=== PATIENT | male | born 1945 | race Hispanic/Latino ===

== ENCOUNTER 2020-09-16 10:05 | Outpatient (CLI) | payer MEDICARE, SELFPAY ==
--- NOTE | ~2020-09-16 | MR_ITS ---
EXAMINATION: MR brain/brain stem wo con DATE: 09/16/2020 11:53 INDICATION: Right-sided numbness. Anesthesia of skin. Left hand numbness and tingling. TECHNIQUE: Magnetic resonance imaging (MRI) of the brain and brainstem was performed without intraven ous contrast. Sequences included sagittal and axial T1-weighted FSE, axial diffusion-weighted FS EPI, axial T2*-weighted GRE, axial T2-weighted FLAIR Propeller, and axial T2-weighted Propeller. Apparent diffusion coefficient (ADC) maps were created. COMPARISON: CT cervical spine 11/14/2015 FINDINGS: There is no intracranial hemorrhage, acute infarction, or abnormal intracranial mass lesion . There is an old lacunar infarct in left lentiform nucleus. There are scattered areas of nonspecific increased T2-weighted signal intensity in the cerebral white matter, which is within normal limits f or the patient's age. The ventricles are normal in size. There is mild mucosal thickening in the para nasal sinuses. There are likely changes of ocular lens replacement surgeries. The mastoid air cells a re normal. IMPRESSION: 1. Old lacunar infarct in left lentiform nucleus. Reviewed, dictated and finalized at location A.
== END 2020-09-16 10:06 | disposition home or self-care (01) ==
PROVIDERS: PCP Family Medicine; Visit Provider Family Medicine
DX: R20.0 Anesthesia of skin (principal); R20.2 Paresthesia of skin
CPT/HCPCS: 70551

== ENCOUNTER 2024-04-27 01:51 | Day surgery (SDC) | payer MEDICARE, SELFPAY ==
[2024-04-26 11:34] VITALS: BMI 22.4
[2024-04-27] VITALS (17 sets, daily range): BP systolic 106–176; BP diastolic 52–98; PULSE 47–60; RESP 12–20; TEMP 36.8; O2SAT 95–100; BMI 21.7
[2024-04-27 08:04] LABS: Basophils Absolute Auto 0.1 K/mm3 (0.0-0.1); Basophils Percent Auto 1.1 % (0.2-1.2); Eosinophils Absolute Auto 0.2 K/mm3 (0-0.3); Eosinophils Percent Auto 3.3 % (0-4.4); Hematocrit 40.3 % (42.0-52.0); Hemoglobin 13.7 g/dL (14.0-18.0); Immature Granulocyte Absolute 0.01 K/mm3 (0.00-0.031); Immature Granulocyte Percent A 0.2 % (0-0.5); Immature Platelet Fraction Pct 3.5 % (0.9-11.2); Lymphocytes Absolute Auto 1.15 K/mm3 (0.9-3.2); Lymphocytes Percent Auto 21.4 % (18.3-44.2); Mean Corpuscular Hemoglobin 32.2 pg (26-34); Mean Corpuscular Volume 94.6 fl (80-100); Mean Platelet Volume 10.2 fl (7.4-10.4); Monocytes Absolute Auto 0.7 K/mm3 (0.1-0.6); Monocytes Percent Auto 12.3 % (2.6-8.5); Neutrophils Absolute Auto 3.3 K/mm3 (1.3-6.7); Neutrophils Percent Auto 61.7 % (45.5-73.1); Platelet Count Result 137 k/mm3 (150-375); Red Blood Count 4.26 M/mm3 (4.6-6.20); Red Cell Distribution Width 12.7 % (11.5-14.5); White Blood Count 5.4 K/mm3 (4.5-10.0)
[2024-04-27 08:14] LABS: Anion Gap 8 mmol/L (4-12); Blood Urea Nitrogen 18 mg/dL (9-20); Calcium 8.9 mg/dL (8.4-10.2); Carbon Dioxide 26 mmol/L (22-30); Chloride 106 mmol/L (98-107); Estimated CRCL calculation 46 ml/min; Estimated Glomerular Filt Rate > 60; Glucose 107 mg/dL (65-110); Sodium 140 mmol/L (137-145)
--- NOTE | 2024-04-27 08:20 | WPDHPUPDATE1 ---
History and Physical Update Update Date/Time: 04/27/24 08:20 History and Physical has been reviewed, including an updated exam of the patient. There are NO changes in the patient's condition. Risks, benefits, and alternatives have been discussed and questions answered. Patient agrees to proceed with procedure.
--- NOTE | 2024-04-27 08:20 | WPDMODSED ---
Moderate Sedation Note-Pt Data Patient Data Diagnosis: Coronary artery disease Present Complaint: Coronary artery disease Procedure to be performed/Plan: Coronary angiography, left heart cath, +/- PCI Allergies Allergy/AdvReac Type Severity Reaction Status Date / Time No Known Allergies Allergy Verified 04/27/24 07:44 Home Medications Medication Instructions Recorded Confirmed Type carvedilol 25 mg tablet 25 mg PO Q12H 05/08/20 04/26/24 History clopidogrel 75 mg tablet (Plavix) 75 mg PO DAILY 05/08/20 04/26/24 History losartan 50 mg tablet 50 mg PO DAILY 05/08/20 04/26/24 History simvastatin 20 mg tablet 20 mg PO DAILY 05/08/20 05/28/21 History zinc sulfate 50 mg zinc (220 mg) 220 mg PO DAILY 05/08/20 05/28/21 History tablet ascorbic acid (vitamin C) 1,000 mg 1 g PO DAILY 07/24/20 04/26/24 History tablet aspirin 81 mg tablet,delayed 81 mg PO DAILY 07/24/20 04/26/24 History release (Adult Aspirin Regimen) cholecalciferol (vitamin D3) 25 25 mcg PO DAILY 07/24/20 04/26/24 History mcg (1,000 unit) capsule potassium gluconate 600 mg (99 mg) 600 mg PO DAILY 07/24/20 05/28/21 History tablet vitamin E 100 unit capsule 100 unit PO DAILY 07/24/20 05/28/21 History sildenafil 100 mg tablet 100 mg PO DAILY PRN sexual 05/28/21 05/28/21 Rx activity #10 tabs Sedation/Anesthesia: No previous sedation/anesthesia problems (including family history). [facility]LY [facility] Past Medical History Medical History Decreased libido Eczema GERD (gastroesophageal reflux disease) History of CVA (cerebrovascular accident) Hyperlipidemia Hypertension Numbness and tingling in left hand Screening for prostate cancer Family History Family History Mother Hypertension Family history of cardiovascular disease Family history of lung cancer Sibling Hypertension Father Family history of cardiovascular disease Social History Social History Smoking status: Never smoker Alcohol intake: never Substance use: never Substance use type: does not use Living arrangements: with family Occupation/Education: retired Gender identity (if verbalized by the patient): Male Sexual Orientation (if Verbalized by the Patient): Straight or Heterosexual Spiritual care concerns: No Agree to blood products: Yes Mod Sed Physical Exam Physical Exam Pre Procedural Exam: Normal: Appearance, Lungs, Heart Rate, Heart Rhythm, Neuro Exam, Extremities and Skin Hours since solid foods: 12 Hours since liquid intake: 8 Mallampati Classification: class II Internal Medicine - PN: Obj Da Vital Signs Vital Signs: Vital Signs - 24 hr 04/27/24 07:46 Temperature 36.8 C Pulse Rate 60 Respiratory Rate 18 Blood Pressure 165/98 H Pulse Oximetry 100 Oxygen Delivery Room Air Labs 04/27/24 07:50 04/27/24 07:50 Labs: Laboratory Results - last 24 hr 04/27/24 07:50 WBC 5.4 RBC 4.26 L Hgb 13.7 L Hct 40.3 L MCV 94.6 MCH 32.2 MCHC 34.0 RDW 12.7 Plt Count 137 L MPV 10.2 Immature Gran % (Auto) 0.2 Neut % (Auto) 61.7 Lymph % (Auto) 21.4 [place] % (Auto) 12.3 H Eos % (Auto) 3.3 Baso % (Auto) 1.1 Lymph # (Auto) 1.15 [place] # (Auto) 0.7 H Eos # (Auto) 0.2 Baso # (Auto) 0.1 Abs Immat Gran (auto) 0.01 Absolute Neuts (auto) 3.3 Absolute Nucleated RBC 0.000 Nucleated RBC % 0.0 % Immature Plt Fraction 3.5 Sodium 140 Potassium 4.0 Chloride 106 Carbon Dioxide 26 Anion Gap 8 BUN 18 Creatinine 1.00 Estim Creat Clear Calc 46 Estimated GFR > 60 Glucose 107 Calcium 8.9 ASA Classification/Sedation ASA Classification/Sedation ASA Class: III Emergent: No Risks: Risks, benefits and alternatives explained and patient/family accepted plan for sedation. Patient re-evaluated immediately prior to sedation.
--- NOTE | 2024-04-27 08:21 | WPDCARDPROC ---
Cardiac Cath Procedure Note Date of procedure:: 04/27/24 Performing physician:: CATHETERIZATION LABORATORY REPORT Procedure Date: 04/27/2024 Regional Environmental Manager: Enmanuel Delgadillo M.D., [facility]? Referring Physician: Zack Coyne M.D. ? Anesthesia: Versed and Fentanyl were ordered and given in my presence at 08:52, procedure ended at 09:13. Supervision of nurse monitored moderate sedation with Versed and Fentanyl was provided for 21 minutes. Total of Versed 1mg and Fentanyl 50mcg were administered by the Site Inspector RN Malia Rabago. Pre-op Diagnosis: Coronary artery disease Post-op Diagnosis: 1. Stent seen in the proximal-mid LAD. There is a moderate 50-60% in-stent restenosis in the mid portion of the stent. 2. Stent seen in the proximal LCX extending to OM branch. There is 80% in-stent restenosis. 3. The distal RCA at the bifurcation of the RPLV and RPDA has a 70% stenosis. The ostial RPDA has an 80% stenosis with a tandem lesion of 70% in the proximal portion. The ostium of the RPLV has angiographically moderate stenosis. Procedure(s): 1. Moderate sedation 2. Ultrasound-guided access of the right radial artery 3. Coronary angiography Access Site: Right radial artery Brief History and Clinical Indications: Patient is a 79 year old male with CAD s/p prior stents who is referred for [facility] for abnormal stress test. All risks, benefits and alternatives to left heart catheterization with or without percutaneous coronary intervention was discussed at length with the patient. Risk of complications including but not limited to bleeding, infection, arrhythmia, stroke, worsening kidney function, blood loss, groin hematoma, limb loss, emergency coronary artery bypass grafting, and even were discussed with the patient and all questions were answered. The patient understood and wished to proceed. Time out called, patient name, date of , medical record number, allergies, procedure performed, identify Regional Environmental Manager, patient and staff member concurred with accurate data, procedure carried on. Findings: LEFT HEART CATHETERIZATION FINDINGS: 1. Left main: The left main coronary artery is widely patent without any significant obstructive disease. 2. Left anterior descending: Stent seen in the proximal-mid LAD. There is a moderate 50-60% in-stent restenosis in the mid portion of the stent. Remainder of LAD has luminal irregularities. 3. Left circumflex: The left circumflex artery has luminal irregularities. Stent seen in the proximal LCX extending to OM branch. There is 80% in-stent restenosis. 4. Right coronary artery: The RCA is the dominant vessel. The RCA is calcified. The RCA has diffuse mild disease with a 40-50% stenosis in the mid portion. The distal RCA at the bifurcation of the RPLV and RPDA has a 70% stenosis. The ostial RPDA has an 80% stenosis with a tandem lesion of 70% in the proximal portion. The ostium of the RPLV has angiographically moderate stenosis. Description of Procedure: Informed consent signed and placed in the chart. Patient transferred to ammunition assembly i laborer room. Prepped and draped in usual sterile fashion. 2% lidocaine injected subcutaneously in right wrist area. 22-gauge venipuncture catheter used to access the right radial artery under ultrasound guidance. 6-FR slender sheath placed in right radial artery. Nitroglycerine and Verapamil were given intraarterial through the sheath. Versacore wire advanced under fluoroscopy 5F Tig 4 diagnostic catheter engaged Left Main Coronary Artery. However, catheter kept disengaging. Repeat angios obtained with 5F FL 5 diagnostic catheter. 5F Tig 4 diagnostic catheter engaged Right Coronary Artery Multiple orthogonal angiogram obtained and reviewed Hemostasis was achieved by application of TR band. Disposition: Home Plan: The patient will be monitored in the recovery area. Discharge home after post-cath bed rest is completed. Will discuss above findings and plan with referring Laundry Bag Punch Operator. Continue aggressive medical therapy and risk factor modification. ? Enmanuel Delgadillo M.D. Interventional Cardiology
== END 2024-04-27 13:31 | disposition home or self-care (01) ==
PROVIDERS: PCP Family Medicine; Visit Provider Internal Medicine
PROC: (CPT 93454; principal; 2024-04-27 09:00)
DX: I25.10 Atherosclerotic heart disease of native coronary artery without angina pectoris (principal); T82.855A Stenosis of coronary artery stent, initial encounter; R94.39 Abnormal result of other cardiovascular function study; Y83.8 Other surgical procedures as the cause of abnormal reaction of the patient, or of later complication, without mention of misadventure at the time of the procedure; Z95.5 Presence of coronary angioplasty implant and graft; I10 Essential (primary) hypertension; E78.5 Hyperlipidemia, unspecified; K21.9 Gastro-esophageal reflux disease without esophagitis; Z86.73 Personal history of transient ischemic attack (TIA), and cerebral infarction without residual deficits; Z79.02 Long term (current) use of antithrombotics/antiplatelets
CPT/HCPCS: 36415; 80048; 85025; 85055; 93454; 93458; A9270; C1769; C1887; C1894; J1644; J2003; J2250; J2305; J3010; J7040

== ENCOUNTER 2024-07-27 07:34 | Emergency (ER) | payer MEDICARE, SELFPAY ==
--- NOTE | ~2024-07-27 | XR_ITS ---
Clinical Indication: Chest pain PA and lateral views of the chest: Comparison: None Findings: The lungs are clear, without evidence of focal consolidation or pleural effusion. Cardiome diastinal silhouette is within normal limits. Bones and soft tissues are unremarkable. Impression: Normal chest. Reviewed, dictated and finalized at location . CAR DRIVER Impression: Normal chest.
--- NOTE | 2024-07-27 07:37 | ECG_ITS ---
Test Date: 2024-07-27 07:42:57 Measurements Intervals Pope Rate: 60 P: 32 MN: 173 QRS: -11 QRSD: 91 T: 45 QT: 406 QTc: 408 Interpretive Statements SINUS RHYTHM POSSIBLE LEFT ATRIAL ENLARGEMENT [-0.1mV P WAVE IN V1/V2] POSSIBLE RIGHT VENTRICULAR CONDUCTION DELAY [RSR (QR) IN V1/V2] No previous ECG available for comparison Electronically Signed On 07-28-2024 09:44:06 DIRECTOR OF NATIONAL SALES by Russell Tee M.D.
--- OUTSIDE RECORDS SUMMARY | 2024-07-27 07:37 | XMS_ITS | Patient Health Summary ---
Author Organization [facility] Address [address] [place] [address] Care Team Providers Care Supervisor Looping Name Role Phone Khris Robertson MD Primary Care Provider Note from [facility],non-owned Affiliates and Associated Physician Practices is amultiple site organization consisting of ambulatory clinics and hospital sitesin [place], [place], [place] and [place]. This disclosure is being madepursuant to the Care Everywhere program and may not contain all information available regarding this patient. Last updated 18.[facility] Social History Tobacco Use Types Packs/Day Years Used Date Smoking Tobacco: Never Assessed Sex and Gender Information Value Date Recorded Sex Assigned at Not on file Gender Identity Not on file Sexual Orientation Not on file Procedures * DERMATOPATHOLOGY(Performed 02/03/2019) Results * DERMATOPATHOLOGY (02/03/2019 12:00 AM CDT) Case Report Dermatopathology Report Case: [id number] Authorizing Provider: Pat Horn DO Collected: 02/03/2019 12:00 AM Ordering Location: [facility] DermPath Lab Received: 02/04/2019 12:02 PM Pathologist: Rafy Jj MD Specimen: Skin, right medial buttock 9 2:34 PM CDT DERMATOPATHOLOGY LABORATORY Final Diagnosis Specimen A. 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 9 2:34 PM CDT DERMATOPATHOLOGY LABORATORY Gross Description Specimen A: Received is one formalin filled container labeled with the patient's name and designated right medial buttock. The specimen consists of a shave measuring [id number]. Jar 0. 2:34 PM CDT DERMATOPATHOLOGY LABORATORY Microscopic Description Specimen A. SKIN, right medial buttock: There is psoriasiform hyperplasia of the epidermis with focal parakeratosis and spongiosis. There is a superficial, mainly lymphohistiocytic inflammatory infiltrate. Grocott's methenamine silver (GMS) stain fails to highlight fungal elements in the available sections. COMMENT: The histological differential diagnosis includes early / partially treated psoriasis and a chronic eczematous dermatitis including contact dermatitis. 2:34 PM CDT DERMATOPATHOLOGY LABORATORY Disclaimer An external and internal positive and negative controls are appropriate for the histochemical, immunohistochemical and immunofluorescence stain(s) in this case (if any), except where stated explicitly. The performance characteristics of the stain(s) cited in this report were developed and its performance characteristic determined by the Dermatopathology Laboratory at [facility], directed by Dr. Susie Jj. These tests need not be, and therefore are not, approved by the [place] Food and Drug Administration. The tests are used for clinical purposes. Billing Codes Specimen Charges Stain Charges 35447 1 13879 1 2:34 PM CDT DERMATOPATHOLOGY LABORATORY Embedded Images 2:34 PM CDT DERMATOPATHOLOGY LABORATORY Pathology/Cytolog y TISSUE SPECIMEN FROM SKIN / Unknown 02/03/2019 02/04/2019 12:02 PM CDT Pat Horn DO LAB - PATHOLOGY/C YTOLOGY ORDERABLES DERMATOPATHOLOGY LABORATORY [facility] - Department of Dermatology [address] [place] [address], 5th Floor Lab [address] [phone] Care Teams Supervisor Looping Relationship Specialty Start Date End Date Khris Robertson MD PCP - General Internal Medicine 08/15/21
--- OUTSIDE RECORDS SUMMARY | 2024-07-27 07:37 | XMS_ITS | Referral Summary ---
Author Organization [facility] Address [address] [place] [address] Care Team Providers Care Corporate Security Manager Name Role Phone Khris Robertson MD Primary Care Provider Source Comments [facility],non-owned Affiliates and Associated Physician Practices is amultiple site organization consisting of ambulatory clinics and hospital sitesin [place], [place], [place] and [place]. This disclosure is being madepursuant to the Care Everywhere program and may not contain all information available regarding this patient. Last updated 18.[facility] Social History Tobacco Use Types Packs/Day Years Used Date Smoking Tobacco: Never Assessed Sex and Gender Information Value Date Recorded Sex Assigned at Not on file Gender Identity Not on file Sexual Orientation Not on file Plan of Treatment Not on file Care Teams Corporate Security Manager Relationship Specialty Start Date End Date Khris Robertson MD PCP - General Internal Medicine 08/15/21
--- OUTSIDE RECORDS SUMMARY | 2024-07-27 07:38 | XMS_ITS | Encounter Summary ---
Author Organization [facility] Address [address] [place] [address] Care Team Providers Care Meat Manager Name Role Phone Shaan Gray MD Primary Care Provider [phone] Ralf Wilson MD Unavailable [phone] Asa Aquino MD Unavailable [phone] Reason for Visit * Reason Onset Date Comments No Contact Made 07/26/2024 Encounter Details Date Type Department Care Team (Late st Contact Info) Description 07/26/2024 Nurse Triage [facility] Primary Care at [address] [phone] Shaan Gray MD [address] [place] [address] [address] [place], [place] [id number] Social History Tobacco Use Types Packs/Day Years Used Date Smoking Tobacco: Never Passive Smoke Exposure: Never Smokeless Tobacco: Never Alcohol Use Standard Drinks/Week Comments No 0 (1 standard drink = 0.6 oz pur e alcohol) AUDIT-C Answer Date Recorded Q1: How often do you have a drink containing alcohol? Never 11/18/2023 Q2: How many drinks containi ng alcohol do you have on a typical day when you are drinking? Patient does not drink Frequency of Binge Drinking Not on file 10/25 PHQ-2 Answer Date Recorded PHQ-2 Total Score (If total score is 3 or more points, staff should administer the PHQ-9) 0 03/25/2024 Sex and Gender Information Value Date Recorded Sex Assigned at Not on file Legal Sex Male 7:27 AM PRINCIPAL TECHNICAL ARCHITECT Gender Identity Male 05/06/2024 8:28 PM PRINCIPAL TECHNICAL ARCHITECT Sexual Orientation Straight 05/06/2024 8: 28 PM PRINCIPAL TECHNICAL ARCHITECT documented as of this encounter Miscellaneous Notes * Telephone Encounter - Adelaide Mosquera MA - 07/26/2024 11:08 AM PRINCIPAL TECHNICAL ARCHITECT Spoke with Garret. He said that he has this for a week and stated that he has been having pressure in his lung on the right side, He has been having burps. He has took Pepto and it is still not helping. Due to patients symptoms he has been advised to go to the ED to be checked out. He stated he was going to [facility] ED. CIPAL TECHNICAL ARCHITECT * Telephone Encounter - Diann Melton RN - 07/26/2024 9:23 AM PRINCIPAL TECHNICAL ARCHITECT Second attempt- [facility] to call back with any further questions or concerns Routing to Shaan Gray MD's office FYI Reason for Disposition Second attempt to contact caller AND no contact made. Phone number verified. Protocols used: No Contact or Duplicate Contact [id number] CIPAL TECHNICAL ARCHITECT * Telephone Encounter - Diann Melton RN - 07/26/2024 9:03 AM PRINCIPAL TECHNICAL ARCHITECT Regarding: Pressure on right side of lungs. Gas more at night when laying down flat feels needles,keeps burping ----- Message from Casi Neville sent at 07/26/2024 8:55 AM PRINCIPAL TECHNICAL ARCHITECT ----- Symptom Based Call Chief Complaint(s): Pressure on right side of lungs. Gas not from food, feels more at night when laying down flat feels like needles and he keeps burping. Duration: For about a week. What type of symptom(s) is the patient experiencing? Red Flag. Is the patient concerned they are experiencing a medical emergency requiring an ambulance? No Additional Comments: Patient stated he has an EKG and Echocardiogram scheduled for 08/09/24 at 9:00 AM at [facility]. Patient stated the pressure is not in his chest but on the right side of his lungs. Does message need to be routed? Yes-Action Needed CIPAL TECHNICAL ARCHITECT documented in this encounter Plan of Treatment Not on file documented as of this encounter Visit Diagnoses Not on filedocumented in this encounter Care Teams Meat Manager Relationship Specialty Start Date End Date Shaan Gray MD [address] [place] [address] PCP - General Family Medicine 02/18/23 Ralf Wilson MD [address] [place] [address] Consulting Physician Cardiology 02/18/23 Asa Aquino MD [address] [place] [address] Consulting Physician Urology 02/18/23 documented as of this encounter
--- OUTSIDE RECORDS SUMMARY | 2024-07-27 07:38 | XMS_ITS | Clinical Summary ---
Author Organization [facility] Address [facility] [place] [address] Care Team Providers Care Special Warfare Combatant Crewman Name Role Phone Shaan Gray MD Primary Care Provider [phone] Ralf Wilson MD Unavailable [phone] Asa Aquino MD Unavailable [phone] Allergies Active Allergy Reactions Criticality Noted Date Comments Atorvastatin Hives Medium 12/02/2022 Medications aspirin 81 mg enteric coated tablet Take 1 tablet (81 mg total) by mouth daily Active zinc sulfate 220 mg tablet Take 1 tablet (220 mg total) by mouth daily Active cholecalciferol (VITAMIN D-3) 25 mcg (1,000 unit) tablet Take 1 tablet (1,000 Units total) by mouth daily Active multivitamin capsule Take 1 capsule by mouth daily Active triamcinolone (KENALOG) 0.05 % ointment Active turmeric root extract 500 mg capsule Take by mouth Active aleisha extract 500 mg capsule Take by mouth Activ e tamsulosin (FLOMAX) 0.4 mg extended release capsuleIndicatio ns:benign prostatic hyperplasia with lower urinary tract sx Take 1 capsule (0.4 mg total) by mouth daily Send to [facility] [employer] 90 capsule 3 09/01/19 24 Active mupirocin (BACTROBAN) 2 % ointment Apply topically 3 (three) times a day For 1 week 22 g 10/27/19 24 Active cyanocobalamin (Vitamin B-12) 1,000 mcg sublingual tablet Take 1 tablet (1,000 mcg total) by mouth daily Active acidophilus-pect in, citrus 100 million cell-10 mg capsule Take by mouth Activ e simvastatin (ZOCOR) 20 mg tabletIndication s:Coronary artery disease involving federated indians of graton coronary artery of federated indians [place] gr[place] heart without angina pectoris Take 1 tablet (20 mg total) by mouth nightly 90 tablet 3 02/24/20 24 025 Active clopidogreL (PLAVIX) 75 mg tabletIndication s: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 DO NOT EXCEED 1 PER 24 HOURS 10 tablet 06/07/19 25 Active saw-vit E-sod nfi-hsw-gppf-pyg 160-100-100 mg-unit-mcg tablet Take by mouth Active biotin 2,500 mcg capsule Take by mouth Active omega-3 fatty acids-fish oil 300-1,000 mg capsule Take 2 capsules (2 g total) by mouth daily Active ASHWAGANDHA EXTRACT ORAL Take by mouth Act maria luz NON FORMULARY, FOR CLINIC ADMINISTERED MEDICATIONS ONLY, (not in database) 1 each once Tribulus 1000mg 025 Discontin ued(Thera py completed ) Active Problems Problem Noted Date Diagnosed Date Platelets decreased 03/25/2024 Nocturnal leg cramps 03/25/2024 Encounter for annual wellnes s visit (AWV) in Medicare patient 03/25/2024 Assessment & Plan (03/25/2024 3:18 PM CDT): A(n) yearly Medicare Annual Wellness Visit has been performed today. Garret Cortes is not up to date on screening tests. He is in need of Hepatitis B. He is not up to date on needed preventative vaccinations; He is in need of Influenza. We discussed healthy lifestyle habits, educational material has been given. Medications reviewed, changes documented as per the medical record and discussed with patient along with risks vs benefits. Specific topics reviewed: drugs, ETOH, and tobacco, importance of regular dental care, importance of regular exercise, importance of varied diet, limit TV, media violence, minimize junk food, and seat belts. Return in 6 months Atypical chest pain 02/24/2024 Laceration of ear canal, initial encounter 10/26 Ectopic atrial rhythm 04/01/2023 Prostatitis 03/05/2023 Assessment & Plan (03/05/2023 10:34 AM CDT): Considering prostatitis of infectious origin on top of BPH Discussed holding herbal that might cause enlargement of prostate Tamsulosin Add saw judah Tubbsrim ds x 2 weeks, considering infectious prostatitis, also with ALYSSA today it may cause some bacteremia Urinalysis today Chronic ischemic heart disease 02/18/2023 Family history of premature CAD 02/18/2023 Establishing care with new doctor, encounter for 02/18/2023 Assessment & Plan (02/21/2023 9:06 PM CDT): A(n) initial visit to establish care has been performed today. Garret Cortes is up to date on screening tests. He is in need of Cholesterol screening. He is not up to date on needed preventative vaccinations; He is in need of Influenza, Zoster, and Covid-19 (booster). We discussed healthy lifestyle habits, educational material has been given. Medications reviewed, changes documented as per the medical record and discussed with patient along with risks vs benefits. Continuing current regimen Labs ordered for next visit Urinalysis is clear for infection, but will send for culture anyway just in case I'll consider if we need empirics to treat prostatitis; culture will take 2 days Holding off on flu shot given recent infection. Switch to coricidin HBP (OTC) for symptoms for now. We can revisit flu shot in 2-3 weeks Return in 4 months Muscle cramps 09/27/2022 Elevated PSA, greater than or equal to 20 ng/ml 06/11/2021 Assessment & Plan (06/04/2022 5:50 PM SECURITY TEST ENGINEER): Monitor, recheck PSA Completed course of antibiotics, no further episodes of painful urination Assessment & Plan (03/22/2022 4:46 PM CDT): Recurrent UTI, with cystitis and proctitis Completed 3 rounds of antibiotics with continued urinary symptoms Recently started on 01/16/2022, continues to have difficulty with urinary symptoms, including increased urinary frequency at night Given likely cystitis or prostatitis, will require long-term antibiotics Start levofloxacin 500 mg daily for 28 days Assessment & Plan (06/11/2021 1:07 PM SECURITY TEST ENGINEER): Patient reports some inconsistent LUTS, reviewed patient provided records demonstrating PSA of 20.4 Patient already has follow-up scheduled with urologist at [facility] Will follow recommendations from Urology 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 Assessment & Plan (09/23/2022 10:55 AM CDT): Stable, generally well controlled; no chest pain, no shortness of breath; no changes to exercise tolerance Continue appropriate management of cholesterol, Continue carvedilol 25 mg b.i.d., Plavix 75 mg daily, losartan 50 mg b.i.d. Assessment & Plan (03/22/2022 4:32 PM CDT): Stable, well controlled; patient reports no chest pain, no dyspnea on exertion or loss of exercise tolerance Continue ASA 81 mg daily, clopidogrel 75 mg daily, carvedilol 25 mg b.i.d., losartan 50 mg b.i.d. Assessment & Plan (09/10/2021 2:07 PM CDT): Stable, well controlled; patient reports no chest pain, no dyspnea or worsening exercise tolerance Continue ASA 81 mg, carvedilol 25 mg, Plavix 75 mg, losartan 50 mg daily Continue simvastatin 20 mg nightly Assessment & Plan (06/11/2021 1:06 PM SECURITY TEST ENGINEER): Stable, well controlled; reports no in good energy levels most recent stress test demonstrated good ejection fraction continue to follow with Cardiology for management continue ASA mg, Coreg 25 mg b.i.d. Plavix 75 mg daily, losartan 50 mg daily, simvastatin 20 mg nightly S/P drug eluting coronary stent placement 2015 Overview (09/05/2016): Status post insertion of drug-eluting stent into left anterior descending artery for coronary artery disease Benign hypertension 03/01/2016 Overview (09/05/2016): HTN (hypertension), benign Assessment & Plan (12/17/2022 5:47 PM CDT): Stable, well controlled; blood pressure at target today Continue medications as listed for coronary artery disease Assessment & Plan (09/23/2022 10:56 AM CDT): Stable, well controlled; blood pressure at target today, for CAD Has some episodes of elevated blood pressure, responds well to medications Blood pressure increases with high salt foods Encourage low-salt diet, less than 2000 g daily Continue carvedilol 25 mg b.i.d., losartan 50 mg b.i.d. Assessment & Plan (06/04/2022 5:50 PM SECURITY TEST ENGINEER): Well controlled, blood pressure at target Continue carvedilol 25 mg b.i.d., losartan 50 mg b.i.d. Assessment & Plan (03/22/2022 4:46 PM CDT): Stable, well controlled; blood pressure at target; patient is working on exercise and weight loss Continue losartan 50 mg b.i.d., carvedilol 25 mg b.i.d. Assessment & Plan (09/10/2021 2:06 PM CDT): Stable, well controlled; patient reports few episodes of elevated blood pressure at home; most root related to eating high sodium foods Encourage patient to avoid high sodium foods Continue carvedilol 25 mg daily If blood pressure remains elevated, may increase losartan 50 mg to b.i.d. dosing Patient to follow-up with cardiology in approximately 3 months Assessment & Plan (06/11/2021 1:06 PM SECURITY TEST ENGINEER): Not well controlled, patient has labile blood pressures with systolics ranging from 110s to 150s Patient follows with Cardiology post making adjustments to blood pressure medications encouraged patient to continue low-salt diet given patient recognizes small to trigger for has high blood pressure Encouraged regular exercise and activity Gastroesophageal reflux disease without esophagi tis 03/01/2016 Overview (09/05/2016): GERD without esophagitis Assessment & Plan (12/17/2022 5:47 PM CDT): Stable, generally well controlled, continue low-fat diet Assessment & Plan (09/23/2022 10:56 AM CDT): Stable, well controlled; continue dietary limitations Mixed hyperlipidemia 10/09/2015 Assessment & Plan (12/17/2022 5:47 PM CDT): Not well controlled, LDL above target for CAD Continue simvastatin 20 mg nightly; encourage low-fat high-fiber diet Assessment & Plan (09/23/2022 10:55 AM CDT): Generally well controlled, last LDL slightly above target for CAD Continue simvastatin 20 mg nightly, encourage low-fat high-fiber diet Assessment & Plan (06/04/2022 5:49 PM SECURITY TEST ENGINEER): Generally well controlled, last lipids at target; no chest pain no headaches Continue carvedilol 25 mg daily, Plavix 75 mg daily, losartan 50 mg b.i.d. , simvastatin 20 mg daily Assessment & Plan (03/22/2022 4:31 PM CDT): Stable, well controlled; LDL is less than 70 Continue simvastatin 20 mg nightly Resolved Problems Problem Noted Date Diagnosed Date Resolved Date Dyslipidemia 03/01/2016 12/18/2021 Overview (09/05/2016): Dyslipidemia Assessment & Plan (09/10/2021 2:08 PM CDT): Well controlled on simvastatin 20 mg daily Patient LDL, HDL and total cholesterol at target for patient with CKD Encounters Date Type Department Care Team Description 07/26/2024 Nurse Triage [facility] Medical [facility] Primary Care at [address] [phone] Shaan Gray MD 07/26/2024 Telephone [facility] Primary Care at [address] [phone] Shaan Gray MD Medical Question/Miscellaneo us 05/12/[address] [facility] Surgery [address] [place] [address] [address] [place] [phone] Dereje Osborn MD Coronary artery disease of federated indians of gr[place] artery of federated indians of gr[place] heart with stable angina pectoris (HCC) (Primary Dx); Shortness of breath 05/11/2024 3:00 PM SECURITY TEST ENGINEER Office Visit [facility] Surgery [address] [place] [address] [address] [place] [phone] Dereje Osborn MD Coronary artery disease involving federated indians of gr[place] coronary artery of federated indians of gr[place] heart without angina pectoris (Primary Dx); Coronary artery disease of federated indians of gr[place] artery of federated indians of gr[place] heart with stable angina pectoris (HCC) 05/05/2024 [facility] Outreach [facility] Accountable Care Organization [address] [place] [id number] Diann Prakash, RN 05/05/2024 Orders Only Cardiothoracic Surgery Sudarshan Coyne MD Coronary artery disease of federated indians of gr[place] artery of federated indians of gr[place] heart with stable angina pectoris (HCC) (Primary Dx) 05/04/2024 [facility] Outreach [facility] Care [address] [address] Diann Prakash, RN 05/03/2024 Telephone [facility] Cardiology at [address] [place] [address] Sudarshan Coyne MD 04/30/2024 3:00 PM SECURITY TEST ENGINEER Office Visit [facility] Medical Group Cardiology at [address] [place] [address] Sudarshan Coyne MD Coronary artery disease of federated indians [place] gr[place] artery of federated indians of gr[place] heart with stable angina pectoris (HCC) (Primary Dx) 04/28/2024 Orders Only [facility] Medical Group Cardiology [address] [place] [address] Enmanuel Delgadillo MD from Last 3 Months Immunizations Immunization Administration Dates Next Due Influenza, Quadrivalent, Hig h Dose, Preservative Free, Intrr 03/06/2023,06/11/2021 Influenza, Trivalent, High D ose, Split, Preservative Free, Intramuscular 03/25/2024,03/20/2018,03/04/2016 Influenza, Trivalent, Preser vative Free, Intramuscular 05/17/2019 Influenza, Unspecified 10/14/2022(Deferr ed: Patient Refused),04/27/2014 Envision Blue Green (J&J) SARS-CoV-2 Vaccination 04/13/2021 Moderna SARS-CoV-2 Monovalen t Vaccination (12+ YRS) 04/13/2021,09/01/2020 Pfizer SARS-CoV-2 Monovalent Vaccination (12+ Yrs) KO-READY TO USE 11/15/2021 Pfizer Sars-Cov-2 Bivalent V accination (12+ YRS) 02/05/2022 Pneumococcal Conjugate PCV 13 03/04/2016 Pneumococcal Conjugate Pcv20 09/04/2023 Pneumococcal Polysaccharide PPV23 05/17/2019 Tdap 09/13/2014,11/16/2012 ZOSTER LIVE 08/31/2013 ZOSTER Recombinant 02/25/2024,09/04/2023 Surgical History Surgery Date Site/Laterality Comments CORONARY ANGIOPLASTY Coronary angioplasty HERNIA REPAIR Hernia repair Medical History Medical History Date Comments Coronary artery disease Hypertension GERD (gastroesophageal reflux disease) 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 (HCC) 08/12/2016 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 Family History Medical History Relation Name Comments Early Brother 1 Anirudh Killingbeck Other Brother 1 Anirudh Killingbeck Unknown; Heart disease Brother 2 Colt Killingbeck Heart disease Father Liana Acostabeck Other Father Liana Acostabeck Heart r elated; Cause of : Heart related Heart disease Father's Brother Rcihie Acostabeck Other Mother Unknown; Heart disease Paternal Grandfather Sajan Acostabeck Relation Name Status Comments Brother 1 Anirudh Killingbeck Brother 2 Colt Killingbeck Alive Father Liana Acostabeck (Age 64) Father's Brother Richie Acostabeck Alive Mother Paternal Grandfather Sajan Acostabeck Alive Social History Tobacco Use Types Packs/Day Years [...] on file Legal Sex Male 7:27 AM SECURITY TEST ENGINEER Gender Identity Male 05/06/2024 8:28 PM SECURITY TEST ENGINEER Sexual Orientation Straight 05/06/2024 8: 28 PM SECURITY TEST ENGINEER Obstetrics History Last Filed Vital Signs Vital Sign Reading Time Taken Comments Blood Pressure 136/74 07/21/2024 3:01 PM SECURITY TEST ENGINEER Pulse 55 07/21/2024 3:01 PM SECURITY TEST ENGINEER Temperature 35.8 C (96.4 F) 03/25/2024 2:56 PM CDT Respiratory Rate 16 05/11/2024 2:52 PM SECURITY TEST ENGINEER Oxygen Saturation 98% 07/21/2024 3:01 PM SECURITY TEST ENGINEER Inhaled Oxygen Concentration - - Weight 64.9 kg (143 lb) 07/21/2024 3:01 PM SECURITY TEST ENGINEER Height 167.6 cm (5' 6 ) 07/21/2024 3:01 PM SECURITY TEST ENGINEER Body Mass Index 23.08 07/21/2024 3:01 PM SECURITY TEST ENGINEER Plan of Treatment Health Maintenance Due Date Last Done Comments Hepatitis B Screening 1963 Covid-19 Vaccine (2023-2 5 season) 2024 02/05/2022, 11/15/2021, 04/13/2021, Additional history exists DTaP/Tdap/Td Vaccine (3 - Td or Tdap) 09/13/2024 09/13/2014, 11/16/2012 Depression Screening 03/25/2025 03/25/2024, 09/01/2023, 04/22/2023, Additional history exists Fall Risk Assessment 03/25/2025 03/25/2024, 04/22/2023, 03/05/2023, Additional history exists Well Visit 65+ 03/25/2025 03/25/2024 Hepatitis C Screening Completed 06/03/2022 Pneumococcal vaccine 65+ Completed 024, 05/17/2019, 03/04/2016 Zoster Vaccine Completed 02/25/2024, 08/24, 08/31/2013 Influenza Vaccine Completed 03/25/2024, , 06/11/2021, Additional history exists Procedures Procedure Name Priority Date/Time Associated Diagnosis Comments HEPATITIS C ANTIBODY Routine 06/03/2022 12:05 PM SECURITY TEST ENGINEER Need for hepatitis C screening test from Last 3 Months or Most Recently Relevant to Health Maintenance Results * Hepatitis C antibody (06/03/2022 12:05 PM SECURITY TEST ENGINEER) Hep C Ab Nonreactive Nonreactive ANAHI ELAM Comment: Interpretive Data Nonreactive: Antibodies to HCV not detected. Does NOT exclude the possibility of recent exposure to HCV. Equivocal: Equivocal for HCV antibodies. Supplemental molecular testing will be automatically performed to determine infection status in accordance with current CDC screening recommendations. Reactive: Positive for HCV antibodies. This may represent current or past HCV infection. Supplemental molecular testing will be automatically performed to determine current infection status in accordance with current CDC screening recommendations. Interpretive data was last revised on 2019. Blood 06/03/2022 12:0 5 PM SECURITY TEST ENGINEER 06/03/2022 8:34 PM SECURITY TEST ENGINEER us Khris Robertson MD LAB MICROBIOLOGY - GENERA L ORDERABLES Final Result [facility] [id number] [facility] [place] [address] from Last 3 Months or Most Recently Relevant to Health Maintenance Insurance [facility] [employer] [facility] [employer] [facility] [employer] Care Teams Special Warfare Combatant Crewman Relationship Specialty Start Date End Date Shaan Gray MD [address] [facility] [address] [place] [address] PCP - General Family Medicine 02/18/23 Ralf Wilson MD [address] [facility] [address] [place], [place] [phone] Consulting Physician Cardiology 02/18/23 Asa Aquino MD [address] [place], [place] [id number] Consulting Physician Urology 02/18/23
--- OUTSIDE RECORDS SUMMARY | 2024-07-27 07:38 | XMS_ITS | Continuity of Care Document ---
Author Name [facility] Organization [facility] Care Team Providers Care Trimming Department Blocker Name Role Phone [facility] Unavailable Unavailable Problems Combined list of problems [facility] [place] and [facility] facilities. It does not include entries that were removed or entered in error. Problem Status Onset Date Problem Type Date of Resolution Comments Source Chronic ischemic heart disease Active Condition [facility] History of male erectile disorder Active Condition [facility] Hyperlipidemia Active Condition [facility] Hypertension Active Condition [facility] Eruption Inactive Condition 09/05/2014 [facility] Medications Combined list of outpatient medications from [facility] [place] and [facility] facilities.Medications provided include 1) outpatient medications from the last 15 months, and 2) patient-reported medications. Medication Details Route Status Patient Instructions Prescription Expires Prescription Number Last Dispense Date Ordering Provider Order Date Order Qty Source AMLODIPINE BESYLATE 10MG TAB TAKE ONE-HALF TABLET BY MOUTH EVERY DAY ORAL ACTIVE BEBA MONTES 2014 [facility] ASPIRIN 81MG TAB,CHEWABL E CHEW ONE TABLET BY MOUTH EVERY DAY ORAL ACTIVE PASQUALE WYNNE 2013 [facility] CARVEDILOL 25MG TAB TAKE ONE-HALF TABLET BY MOUTH TWICE A DAY ORAL ACTIVE PASQUALE WYNNE 2013 [facility] SIMVASTATIN 80MG TAB TAKE ONE-HALF TABLET BY MOUTH AT BEDTIME ORAL ACTIVE PASQUALE WYNNE 2013 [facility] Immunizations Combined list of available immunizations from the [facility] [place] and [facility] facilities. Immunization Series Date Given Administered By Site Reaction Lot Number CVX Code Drug Resident Services Director Status Comments Source TDAP 2014 115 complet ed Left Deltoid 0.5ml IM [facility] INFLUENZA, UNSPECIFIED FORMULATION 2013 88 complet ed [facility] Social History Combined list of available smoking, tobacco, and other social history from Department of Defense and Veterans Affairs facilities. Social History Type Response Date Comment Sourc e Tobacco smoking status NHIS LIFETIME NON-USER OF TOBACCO 08/31/2013 [facility]
--- OUTSIDE RECORDS SUMMARY | 2024-07-27 07:38 | XMS_ITS | Clinical Summary ---
Author Organization [facility] Address [address] [place] [address] Care Team Providers Care House Mover Helper Name Role Phone None, Provider MD Primary Care Provider Unavaila ble Allergies Active Allergy Reactions Criticality Noted Date Comments Aspirin Other (see comment) Medium Reaction: bleeding, Grass Unknown 11/03/2015 Losartan Unknown 11/30/2015 Pt states he is not allergic to this. Medications nitroglycerin 0.4 MG SL tablet nitroglycerin Tablet, Sublingual 0.4 mg; take 1 tablet under tongue every 5 minutes for chest pain.; 25; ; -Mar-2015; Active 04/19/20 15 Active aspirin 81 MG chewable tablet Chew 81 mg by mouth daily. Active Multiple Vitamin (MULTIVITAMIN) capsule Take 1 capsule by mouth. Active ketoconazole 2 % creamIndications :Dermatitis Apply topically 2 (two) times daily. 60 g 01/09/20 19 Active Potassium 99 MG tablet Take 1 tablet by mouth daily. Active Magnesium 200 MG Tab Take 1 tablet by mouth daily. Active amLODIPine 5 MG tabletIndication s:Benign hypertension TAKE 1 TABLET DAILY DIRECTED 90 tablet 09/06/19 20 Active OMEPRAZOLE 40 MG capsuleIndicatio ns:Gastroesophag eal reflux disease without esophagitis TAKE 1 CAPSULE DAILY 90 capsule 09/06/19 20 Active simvastatin 20 MG tabletIndication s:Hyperlipidemia Take 1 tablet (20 mg total) by mouth nightly at bedtime. 90 tablet 02/04/20 20 Active carvedilol 25 MG tabletIndication s:Coronary artery disease involving [place] coronary artery of [place] heart without angina pectoris,Benign hypertension Take 1 tablet (25 mg total) by mouth 2 (two) times daily. 180 tablet 02/04/20 20 Active clopidogrel 75 MG tabletIndication s:Coronary artery disease of [place] artery of [place] heart with stable angina pectoris (CMS/HCC) Take 1 tablet (75 mg total) by mouth daily. 90 tablet 02/04/20 20 Active losartan 50 MG tabletIndication s:Benign hypertension Take 1 tablet (50 mg total) by mouth daily. 90 tablet 02/04/20 20 Active Turmeric (QC TUMERIC COMPLEX OR) Take 1 tablet by mouth daily. Active sildenafil 100 MG tabletIndication s:Erectile disorder due to medical condition in male Take 1 tablet (100 mg total) by mouth daily as needed for Erectile Dysfunction. 10 tablet 3 02/08/20 20 Active Active Problems Problem Noted Date Diagnosed Date Epigastric pain 02/08/2020 Erectile disorder due to medical condition in ma le 02/08/2020 Red eye 06/11/2019 BMI 22.0-22.9, adult 12/09/2018 Gastroesophageal reflux disease without esophagi tis 03/01/2016 Overview (07/14/2018): Overview: GERD without esophagitis S/P drug eluting coronary stent placement 2015 Overview (07/14/2018): Overview: Status post insertion of drug-eluting stent into left anterior descending artery for coronary artery disease Coronary artery disease invo lving [place] coronary artery of [place] heart without angina pectoris 10/09/2015 Overview (10/15/2018): Overview: Coronary artery disease of [place] artery of [place] heart with stable angina pectoris Overview: Coronary artery disease of [place] artery of [place] heart with stable angina pectoris Hyperlipidemia 10/09/2015 Benign hypertension 10/09/2015 Overview (07/14/2018): Overview: HTN (hypertension), benign Resolved Problems Problem Noted Date Diagnosed Date Resolved Date Viral syndrome 07/14/2019 02/08/2020 Acute upper respiratory infection 08/10/2018 12/09/2018 Atypical chest pain 07/14/2018 12/10/19 19 Precordial pain 07/14/2018 12/09/2018 Dermatitis 07/14/2018 05/21/2019 Male erectile disorder of organic origin 11/20/2016 07/14/2019 Dyslipidemia 03/01/2016 12/09/2018 Overview (07/14/2018): Overview: Dyslipidemia Odynophagia 10/11/2015 12/09/2018 Edema 01/06/2013 12/09/2018 Immunizations Name Administration Dates Next Due Fluzone Adult - >Age 3 (Prefilled Syringe) 05/17 Fluzone High Dose - >Age 65 (Prefilled Syringe) 03/20/2018,03/04/2016 Influenza Adult (Generic) 03/20/2018,03/04/2016 Pneumococcal (Pneumovax 23) 05/17/2019 Pneumococcal (Prevnar 13) 03/04/2016 Tdap (Generic) 11/16/2012 Family History Medical History Relation Comments Heart Brother Heart Father Relation Status Comments Brother Father Mother Social History Tobacco Use Types Packs/Day Years Used Date Smoking Tobacco: Never Smokeless Tobacco: Never Tobacco Cessation:Counseling Given: No Alcohol Use Standard Drinks/Week Comments No 0 (1 standard drink = 0.6 oz pur e alcohol) AUDIT-C Answer Date Recorded Frequency of Alcohol Consumption Never 07/14/2018 Average Number of Drinks Not on file 019 Frequency of Binge Drinking Not on file 06/26 PHQ-2 Answer Date Recorded PHQ-2 Score - If the patient scores above 3, please move on to questions 3-9 0 02/08/2020 Education Answer Date Recorded What is the highest level of school you have completed or the highest degree you have received? Master's degree (e.g., MA, MS, Vanessa, MEd, SEO INTERN, STEPHANIE) 07/14/2018 Sex and Gender Information Value Date Recorded Sex Assigned at Not on file Legal Sex Male 8:21 PM CDT Gender Identity Not on file Sexual Orientation Not on file Last Filed Vital Signs Vital Sign Reading Time Taken Comments Blood Pressure 120/80 02/08/2020 11:18 AM CDT Pulse 54 02/08/2020 11:18 AM CDT Temperature 36.3 C (97.3 F) 02/08/2020 11:18 AM CDT Respiratory Rate 16 02/08/2020 11:18 AM CDT Oxygen Saturation 97% 02/08/2020 11:18 AM CDT Inhaled Oxygen Concentration - - Weight 62.8 kg (138 lb 6.4 oz) 02/08/2020 11:18 AM CDT Height 165.1 cm (5' 5 ) 02/08/2020 11:18 AM CDT Body Mass Index 23.03 02/08/2020 11:18 AM CDT Plan of Treatment Health Maintenance Due Date Last Done Comments ASCVD Statin 1945 Hepatitis C 1963 Colorectal Cancer Screening FIT/FOBT (1 Year) 1990 Zoster Vaccines (1 of 2) 1995 Annual Medicare Wellness Visit 2010 RSV Immunization or 60+ Years (1 - 1-dose 75+ series) 2020 ASCVD LDL 05/28/2020 05/28/2019, 07/25, 02/12/2010 DTaP, Tdap and Td Vaccines (2 - Td or Tdap) 11/16/2022 11/16/2012 COVID-19 Vaccine (3 - season) 2024 04/13/2021, 09/01/2020 Influenza Adult (#1) 2024 05/17/2019, 03/20/2018, 03/20/2018, Additional history exists Pneumococcal Vaccine: 65+ Years Completed 05/17/2019, 03/04/2016 Meningococcal B Vaccine Aged Out No l onger eligible based on patient's age to complete this topic Meningococcal Vaccine Aged Out No jed pacheco eligible based on patient's age to complete this topic RSV Immunizations Under 20 Months Aged Out No longer eligible based on patient's age to complete this topic Procedures Procedure Name Priority Date/Time Associated Diagnosis Comments LIPID PANEL Routine 05/28/2019 9:28 AM TELETYPEWRITER OPERATOR Mixed hyperlipidemia Benign hypertension from Last 3 Months or Most Recently Relevant to Health Maintenance Results * LIPID PANEL (05/28/2019 9:28 AM TELETYPEWRITER OPERATOR) CHOLESTEROL 137 <200.0 MG/DL 05/28/2019 10:[address] [facility] TRIGLYCERIDES 41 <150 MG/DL 05/28/2019 10:57 [address] [facility] HDL 66 >40.0 MG/DL 05/28/2019 10:57 AM [facility] LDL (CALCULATED) 63 <100 MG/DL 05/28/19 20 10:57 AM [facility] NON HDL CHOLESTEROL 71 <130 MG/DL 05/28 10:57 AM [facility] CHOL/HDL RATIO 2.1 0.0 - 4.5 05/28/2019 10:57 AM [facility] VLDL CALCULATION 8 5 - 55 MG/DL 05/28/2019 10:57 AM [facility] LIPID INTERPRETATION 05/28/2019 10:57 AM [facility] Comment: NIH CONCENSUS REPORT RECOMMENDATIONS: ADULT CHILD LOW RISK: CHOLESTEROL <200 <170 TRIGLYCERIDE <150 --- HDL >=60 --- LDL <100 <110 BORDERLINE: CHOLESTEROL 200-239 170-199 TRIGLYCERIDE 150-199 --- HDL 40-59 --- LDL 100-159 110-129 HIGH RISK: CHOLESTEROL >=240 >=200 TRIGLYCERIDE >=200 --- HDL <40 --- LDL >=160 >=130 05/28/2019 9:28 AM TELETYPEWRITER OPERATOR Eric Dubois MD LABORATORY Final Re sult [facility] [address] [place] [address], from Last 3 Months or Most Recently Relevant to Health Maintenance Insurance [employer] [facility] Care Teams House Mover Helper Relationship Specialty Start Date End Date None, Provider, PCP - General UNKNOWN PHYSICIAN SPECIALTY 07/17/23
--- OUTSIDE RECORDS SUMMARY | 2024-07-27 07:38 | XMS_ITS | Encounter Summary ---
Author Organization [facility] Address [address] [facility] [place] [address] Care Team Providers Care Head Of Measurement & Insights Name Role Phone Khris Robertson MD Primary Care Provider Encounter Details Date Type Department Care Team (Late st Contact Info) Description 02/04/2019 Lab Requisition [facility] D[facility] [address] [facility] [place] [address] Pat Horn DO [address] [facility] [address] [place] [address] Social History Tobacco Use Types Packs/Day Years Used Date Smoking Tobacco: Never Assessed Sex and Gender Information Value Date Recorded Sex Assigned at Not on file Gender Identity Not on file Sexual Orientation Not on file documented as of this encounter Plan of Treatment Not on file documented as of this encounter Procedures Procedure Name Priority Date/Time Associated Diagnosis Comments DERMATOPATHOLOGY Routine 02/03/2019 12:0 0 AM CDT documented in this encounter Results * DERMATOPATHOLOGY (02/03/2019 12:00 AM CDT) Case Report Dermatopathology Report Case: [id number] Authorizing Provider: Pat Horn DO Collected: 02/03/2019 12:00 AM Ordering Location: [facility] Received: 02/04/2019 12:02 PM Pathologist: Rafy Jj MD Specimen: Skin, right medial buttock 9 2:34 PM CDT DERMATOPATHOLOGY LABORATORY Final Diagnosis Specimen A. 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 2:34 PM CDT DERMATOPATHOLOGY LABORATORY Gross Description Specimen A: Received is one formalin filled container labeled with the patient's name and designated right medial buttock. The specimen consists of a shave measuring [id number]. Jar 0. 2:34 PM CDT DERMATOPATHOLOGY LABORATORY [...] characteristic determined by the Dermatopathology Laboratory at [facility], directed by Dr. Susie Jj. These tests need not be, and therefore are not, approved by the [place] Food and Drug Administration. The tests are used for clinical purposes. Billing Codes Specimen Charges Stain Charges 44695 1 [id number] 1 2:34 PM CDT DERMATOPATHOLOGY LABORATORY Embedded Images 2:34 PM CDT DERMATOPATHOLOGY LABORATORY Pathology/Cytolog y TISSUE SPECIMEN FROM SKIN / Unknown 02/03/2019 02/04/2019 12:02 PM CDT Pat Horn DO LAB - PATHOLOGY/C YTOLOGY ORDERABLES DERMATOPATHOLOGY LABORATORY [facility] - Department of Dermatology [address] [place] [address], 5th Floor Lab [address] [phone] documented in this encounter Visit Diagnoses Not on filedocumented in this encounter Care Teams Head Of Measurement & Insights Relationship Specialty Start Date End Date Khris Robertson MD PCP - General Internal Medicine 08/15/21 documented as of this encounter
--- OUTSIDE RECORDS SUMMARY | 2024-07-27 07:38 | XMS_ITS | Encounter Summary ---
Author Organization [facility] Address [address] [place] [address] Care Team Providers Care Print Line Operator Name Role Phone Shaan Gray MD Primary Care Provider [phone] Ralf Wilson MD Unavailable [phone] Asa Aquino MD Unavailable [phone] Reason for Visit * Reason Onset Date Comments Medical Question/Miscellaneous 07/26/2024 Encounter Details Date Type Department Care Team (Late st Contact Info) Description 07/26/2024 Telephone [facility] Medical Group Primary Care at [place] [address] [place] [address] Shaan Gray MD [address] [place] [address] [address] [place] [address] Medical Question/Miscellaneous Social History Tobacco Use Types Packs/Day Years [...] on file Legal Sex Male 7:27 AM PLANT TECH Gender Identity Male 05/06/2024 8:28 PM PLANT TECH Sexual Orientation Straight 05/06/2024 8: 28 PM PLANT TECH documented as of this encounter Miscellaneous Notes * Telephone Encounter - Lucinda Aguilar - 07/26/2024 8:39 AM CST Medical Question/Miscellaneous Caller???s Concern: I was scheduling patient for appt, scheduled with GUY Chavis for 07/30/2023,, they stated they wanted to change to Dr Gray, but still have right away, explained that Dr Gray's next appt was 08/24/2024. The call was disconnected, I think it was a phone issue. I called patient back, went to voice mail, left message for them to call back if they still wanted to change appointment. Does message need to be routed? No T TECH documented in this encounter Plan of Treatment Not on file documented as of this encounter Visit Diagnoses Not on filedocumented in this encounter Care Teams Print Line Operator Relationship Specialty Start Date End Date Shaan Gray MD [address] [facility] [place] [address] [place] [address] PCP - General Family Medicine 02/18/23 Ralf Wilson MD [address] [facility] [place] [address] [place] [address] Consulting Physician Cardiology 02/18/23 Asa Aquino MD [address] [place] [address] Consulting Physician Urology 02/18/23 documented as of this encounter
--- OUTSIDE RECORDS SUMMARY | 2024-07-27 07:38 | XMS_ITS | Referral Summary ---
Author Organization [facility] Address [address] [place] [address] Care Team Providers Care Warehouse Loader Name Role Phone Shaan Gray MD Primary Care Provider [phone] Ralf Wilson MD Unavailable [phone] Asa Aquino MD Unavailable [phone] Encounters Date Type Department Care Team Description 07/26/2024 Nurse Triage [facility] Medical Group Primary Care at [address] [address] Shaan Gray MD 07/26/2024 Telephone [facility] Medical [facility] Primary Care at [address] [address] Shaan Gray MD Medical Question/Miscellaneo us 05/12/2024 Orders Only [facility] Surgery [address] [place] [phone] Dereje Osborn MD Coronary artery disease of [place] artery of [place] heart with stable angina pectoris (HCC) (Primary Dx); Shortness of breath 05/11/2024 3:00 PM ENDOCRINOLOGY PHYSICIAN Office Visit [facility] Surgery [address] [place] [phone] Dereje Osborn MD Coronary artery disease involving [place] coronary artery of [place] heart without angina pectoris (Primary Dx); Coronary artery disease of [place] artery of [place] heart with stable angina pectoris (HCC) 05/05/2024 [facility] Out[facility] Accountable Care Organization [address] [place] [address] Diann Prakash RN 05/05/2024 Orders Only Cardiothoracic Surgery Sudarshan Coyne MD Coronary artery disease of [place] artery of [place] heart with stable angina pectoris (HCC) (Primary Dx) 05/04/2024 [facility] Outreach [address] [address] Diann Prakash RN 05/03/2024 Telephone [facility] Medical Group Cardiology at [address] [place] [phone] Sudarshan Coyne MD 04/30/2024 3:00 PM ENDOCRINOLOGY PHYSICIAN Office Visit [facility] Cardiology at [address] [place] [phone] Sudarshan Coyne MD Coronary artery disease of [place] artery of [place] heart with stable angina pectoris (HCC) (Primary Dx) 04/28/2024 Orders Only [facility] Medical [facility] Cardiology [address] [place] [address] Enmanuel Delgadillo MD from Last 3 Months Allergies Active Allergy Reactions Criticality Noted Date [...] mg total) by mouth daily Send to [facility] 90 capsule 3 09/01/19 24 Active mupirocin [...] 20 mg tabletIndication s:Coronary artery disease involving [place] coronary artery of [place] heart without angina pectoris Take 1 tablet (20 mg total) by mouth nightly 90 tablet 3 02/24/20 24 025 Active clopidogreL (PLAVIX) 75 mg tabletIndication s:Coronary artery disease of [place] artery of [place] heart with stable angina pectoris (HCC) TAKE [...] 10 tablet 06/07/19 25 Active saw-vit E-sod [id number] 160-100-100 mg-unit-mcg tablet Take by mouth Active [...] 06/11/2021 Assessment & Plan (06/04/2022 5:50 PM ENDOCRINOLOGY PHYSICIAN): Monitor, recheck PSA Completed course of antibiotics, [...] days Assessment & Plan (06/11/2021 1:07 PM ENDOCRINOLOGY PHYSICIAN): Patient reports some inconsistent LUTS, reviewed patient provided records demonstrating PSA of 20.4 Patient already has follow-up scheduled with urologist at [facility] Will follow recommendations from Urology Coronary artery disease of n ative artery of [place] heart with stable angina pectoris 08/12/2016 Overview (10/18/2016): Coronary artery disease of [place] artery of [place] heart with stable angina pectoris Assessment & [...] nightly Assessment & Plan (06/11/2021 1:06 PM ENDOCRINOLOGY PHYSICIAN): Stable, well controlled; reports no in good [...] b.i.d. Assessment & Plan (06/04/2022 5:50 PM ENDOCRINOLOGY PHYSICIAN): Well controlled, blood pressure at target Continue [...] months Assessment & Plan (06/11/2021 1:06 PM ENDOCRINOLOGY PHYSICIAN): Not well controlled, patient has labile blood [...] diet Assessment & Plan (06/04/2022 5:49 PM ENDOCRINOLOGY PHYSICIAN): Generally well controlled, last lipids at target; [...] cholesterol at target for patient with CKD Immunizations Immunization Administration Dates Next Due Influenza, Quadrivalent, Hig h Dose, Preservative Free, Intrr 03/06/2023,06/11/2021 Influenza, Trivalent, High D ose, Split, Preservative Free, Intramuscular 03/25/2024,03/20/2018,03/04/2016 Influenza, Trivalent, Preser vative Free, Intramuscular 05/17/2019 Influenza, Unspecified 10/14/2022(Deferr ed: Patient Refused),04/27/2014 MusicIP (J&J) SARS-CoV-2 Vaccination 04/13/2021 Moderna SARS-CoV-2 Monovalen t Vaccination (12+ YRS) 04/13/2021,09/01/2020 Pfizer SARS-CoV-2 Monovalent Vaccination (12+ Yrs) KO-READY TO USE 11/15/2021 Pfizer Sars-Cov-2 Bivalent V accination (12+ YRS) 02/05/2022 Pneumococcal Conjugate PCV 13 03/04/2016 Pneumococcal Conjugate Pcv20 09/04/2023 Pneumococcal Polysaccharide PPV23 05/17/2019 Tdap 09/13/2014,11/16/2012 ZOSTER LIVE 08/31/2013 ZOSTER Recombinant 02/25/2024,09/04/2023 Social History Tobacco Use Types Packs/Day Years [...] on file Legal Sex Male 7:27 AM ENDOCRINOLOGY PHYSICIAN Gender Identity Male 05/06/2024 8:28 PM ENDOCRINOLOGY PHYSICIAN Sexual Orientation Straight 05/06/2024 8: 28 PM ENDOCRINOLOGY PHYSICIAN Last Filed Vital Signs Vital Sign Reading Time Taken Comments Blood Pressure 136/74 07/21/2024 3:01 PM ENDOCRINOLOGY PHYSICIAN Pulse 55 07/21/2024 3:01 PM ENDOCRINOLOGY PHYSICIAN Temperature 35.8 C (96.4 F) 03/25/2024 2:56 PM CDT Respiratory Rate 16 05/11/2024 2:52 PM ENDOCRINOLOGY PHYSICIAN Oxygen Saturation 98% 07/21/2024 3:01 PM ENDOCRINOLOGY PHYSICIAN Inhaled Oxygen Concentration - - Weight 64.9 kg (143 lb) 07/21/2024 3:01 PM ENDOCRINOLOGY PHYSICIAN Height 167.6 cm (5' 6 ) 07/21/2024 3:01 PM ENDOCRINOLOGY PHYSICIAN Body Mass Index 23.08 07/21/2024 3:01 PM ENDOCRINOLOGY PHYSICIAN Plan of Treatment Not on file Procedures Procedure Name Priority Date/Time Associated Diagnosis Comments HEPATITIS C ANTIBODY Routine 06/03/2022 12:05 PM ENDOCRINOLOGY PHYSICIAN Need for hepatitis C screening test from Last 3 Months or Most Recently Relevant to Health Maintenance Results * Hepatitis C antibody (06/03/2022 12:05 PM ENDOCRINOLOGY PHYSICIAN) Hep C Ab Nonreactive Nonreactive [facility] ELAM [...] on 2019. Blood 06/03/2022 12:0 5 PM ENDOCRINOLOGY PHYSICIAN 06/03/2022 8:34 PM ENDOCRINOLOGY PHYSICIAN us Khris Robertson MD LAB MICROBIOLOGY - GENERA [place] [id number] [address] Department [place] [address] from Last 3 Months or Most Recently Relevant to Health Maintenance Insurance [facility] [employer] [facility] [employer] [facility] [employer] Care Teams Warehouse Loader Relationship Specialty Start Date End Date Shaan Gray MD [address] [facility] [address] [place] [address] PCP - General Family Medicine 02/18/23 Ralf Wilson MD [address] [facility] [address] [place] [address] Consulting Physician Cardiology 02/18/23 Asa Aquino MD [address] [facility] [address] [place] [address] Consulting Physician Urology 02/18/23
--- OUTSIDE RECORDS SUMMARY | 2024-07-27 07:38 | XMS_ITS | Clinical Summary ---
Author Organization [facility] Address [address] [place] [address] Care Team Providers Care Bottom Filler Name Role Phone Khris Robertson MD Primary Care Provider Source Comments [facility],non-owned Affiliates and Associated Physician Practices is amultiple site organization consisting of ambulatory clinics and hospital sitesin [place], [place], [place] and [place]. This disclosure is being madepursuant to the Care Everywhere program and may not contain all information available regarding this patient. Last updated 18.[facility] [employer] Social History Tobacco Use Types Packs/Day Years Used Date Smoking Tobacco: Never Assessed Sex and Gender Information Value Date Recorded Sex Assigned at Not on file Gender Identity Not on file Sexual Orientation Not on file Plan of Treatment Health Maintenance Due Date Last Done Comments MEDICARE AWV 12 MONTHS 1945 DTAP/TDAP/TD VACCINES (1 - Tdap) 1964 PNEUMOCOCCAL VACCINE 50+ (1 of 1 - PCV) 1995 ZOSTER VACCINE (1 of 2) 1995 Respiratory Syncytial Virus (RSV) Vaccine Pt: or over 60 yrs (1 - 1-dose 75+ series) 2020 COVID-19 VACCINE (3 - 2023- season) 2024 04/13/2021, 09/01/2020 INFLUENZA VACCINE (#1) 2024 9, 03/20/2018, 03/20/2018, Additional history exists DEPRESSION SCREENING 05/26/2024 HEPATITIS B VACCINE Aged Out No longe r eligible based on patient's age to complete this topic HIB VACCINE Aged Out No longer eligi ble based on patient's age to complete this topic HPV VACCINE Aged Out No longer eligi ble based on patient's age to complete this topic MENINGOCOCCAL (Group B) VACCINE Aged Out No longer eligible based on patient's age to complete this topic MENINGOCOCCAL VACCINE Aged Out No jed pacheco eligible based on patient's age to complete this topic Care Teams Bottom Filler Relationship Specialty Start Date End Date Khris Robertson MD PCP - General Internal Medicine 08/15/21
--- OUTSIDE RECORDS SUMMARY | 2024-07-27 07:38 | XMS_ITS | Encounter Summary ---
Author Organization [facility] Address [address] [address] Care Team Providers Care Inspector Fabric Name Role Phone Eric Dubois MD Primary Care Provider Eric Dubois MD Primary Care Provider Godwin Estrada MD Primary Care Provider Eric Dubois MD Primary Care Provider Korey Matthew MD Primary Care Provider [phone] Khris Robertson MD Primary Care Provider Adeline Lowery MD Primary Care Provider Khris Robertson MD Primary Care Provider [phone] Shaan Gray MD Primary Care Provider [phone] Ralf Wilson MD Unavailable [phone] Asa Aquino MD Unavailable [phone] Encounter Details Date Type Department Care Team (Late st Contact Info) Description 08/12/2016 Orders Only [facility] ProviderVince MD [address] [place] [address] Social History Tobacco Use Types Packs/Day Years Used Date Smoking Tobacco: Never Assessed Sex and Gender Information Value Date Recorded Sex Assigned at Not on file Legal Sex Male 7:27 AM STERILE PREPARATION TECHNICIAN Gender Identity Male 05/06/2024 8:28 PM STERILE PREPARATION TECHNICIAN Sexual Orientation Straight 05/06/2024 8: 28 PM STERILE PREPARATION TECHNICIAN documented as of this encounter Plan of Treatment Not on file documented as of this encounter Procedures Procedure Name Priority Date/Time Associated Diagnosis Comments CARDIOLOGY REPORT 08/12/2016 documented in this encounter Results * CARDIOLOGY REPORT (08/12/2016) Anatomical Region Laterality Modality Other Narrative 08/12/2016 Ordered by an unspecified provider. us Historical Provider [facility] KIARRA HARDIN Final Result documented in this encounter Visit Diagnoses Not on filedocumented in this encounter Additional Health Concerns Infection Onset Date Last Indicated Resolved Time COVID: Suspected 11/12/2021 11/12/2021 11/12/2021 3:39 PM CDT COVID19 11/12/2021 11/12/2021 11/22/2021 3:05 AM CDT COVID: Recovered Comment:Added based on recent COVID infection. 11/22/2021 12/18/2021 03/22/2022 3:05 AM C DT COVID: Suspected 02/09/2023 02/09/2023 02/09/2023 2:26 PM CDT COVID: Suspected 02/09/2023 02/09/2023 02/09/2023 2:28 PM CDT documented as of this encounter Care Teams Inspector Fabric Relationship Specialty [place] [address] [place] [address] PCP - General 08/23/16 08/07/17 [place] [address] [place] [address] PCP - General 03/01/16 08/22/16 Godwin Estrada MD [address] [facility] [address] [place] [address] PCP - General Family Medicine 08/08/17 10/09/17 [place] [address] [place] [address] PCP - General Internal Medicine 10/15/17 09/03/20 Korey Matthew MD [address] [place] [address] [place] [address] PCP - General Family Medicine 09/04/20 06/10/21 Khris Robertson MD [address] [place] [address] PCP - General Family Medicine 06/11/21 01/16/22 Adeline Lowery MD [address] [facility] [place] [address] PCP - General Family Practice 01/17/22 01/21/22 Khris Robertson MD [address] [facility] [place] [address] PCP - General Family Medicine 01/22/22 02/17/23 Shaan Gray MD 2 [facility] [address] [place] [address] PCP - General Family Medicine 02/18/23 Ralf Wilson MD 2 [facility] [place] [address] [place] [address] Consulting Physician Cardiology 02/18/23 Asa Aquino MD [address] [place] [address] [place] [address] Consulting Physician Urology 02/18/23 documented as of this encounter
--- OUTSIDE RECORDS SUMMARY | 2024-07-27 07:38 | XMS_ITS | Clinical Summary ---
Author Organization [facility] Address [address] [place] [address] Care Team Providers Care Patent Lawyer Name Role Phone Unavailable Primary Care Provider Unavailabl e Social History Tobacco Use Types Packs/Day Years Used Date Smoking Tobacco: Never Assessed Sex and Gender Information Value Date Recorded Sex Assigned at Not on file Legal Sex Male 12:02 PM BAR USEFUL OR BUSSER Gender Identity Not on file Sexual Orientation Not on file Plan of Treatment Upcoming Encounters Date Type Department Care Team (Late st Contact Info) Description 08/04/2024 1:30 PM CDT Office Visit [facility] Heart and Vascular - [address] [place] [address] Ralf Wilson MD [address] [place] [address] Health Maintenance Due Date Last Done Comments DTAP/TDAP/TD VACCINES (1 - Tdap) 1964 PNEUMOCOCCAL VACCINE 50+ YEARS (1 of 1 - PCV) 04/11/19 95 ZOSTER VACCINE (1 of 2) 1995 RSV VACCINE (60+ or ) (1 - 1-dose 75+ series) 2020 INFLUENZA VACCINE (#1) [address] [place] [address] [place] [address] [employer] PPO [facility]
[2024-07-27 07:50] VITALS: BP 202/94; PULSE 56; RESP 16; TEMP 36.7; O2SAT 100
[2024-07-27 08:05] LABS: Basophils Absolute Auto 0.1 K/mm3 (0.0-0.1); Eosinophils Absolute Auto 0.1 K/mm3 (0-0.3); Eosinophils Percent Auto 2.5 % (0-4.4); Hematocrit 41.4 % (42.0-52.0); Hemoglobin 14.2 g/dL (14.0-18.0); Immature Granulocyte Absolute 0.02 K/mm3 (0.00-0.031); Immature Granulocyte Percent A 0.4 % (0-0.5); Immature Platelet Fraction Pct 3.7 % (0.9-11.2); Lymphocytes Absolute Auto 0.97 K/mm3 (0.9-3.2); Lymphocytes Percent Auto 18.9 % (18.3-44.2); Mean Corpuscular HGB Conc 34.3 g/dl (32-36); Mean Corpuscular Hemoglobin 32.6 pg (26-34); Mean Corpuscular Volume 95.2 fl (80-100); Mean Platelet Volume 10.3 fl (7.4-10.4); Monocytes Absolute Auto 0.6 K/mm3 (0.1-0.6); Monocytes Percent Auto 10.7 % (2.6-8.5); Neutrophils Absolute Auto 3.4 K/mm3 (1.3-6.7); Neutrophils Percent Auto 66.5 % (45.5-73.1); Platelet Count Result 113 k/mm3 (150-375); Red Blood Count 4.35 M/mm3 (4.6-6.20); White Blood Count 5.1 K/mm3 (4.5-10.0)
--- OUTSIDE RECORDS SUMMARY | 2024-07-27 08:06 | XMS_ITS | Referral Summary ---
Author Organization [facility] Address [address] [facility] [place] [address] Care Team Providers Care Industrial Photographer Name Role Phone Khris Robertson MD Primary Care Provider Source Comments [facility],non-owned Affiliates and Associated Physician Practices is amultiple site organization consisting of ambulatory clinics and hospital sitesin [place], [place], [place] and [place]. This disclosure is being madepursuant to the Care Everywhere program and may not contain all information available regarding this patient. Last updated 18.[facility] Social History Tobacco Use Types Packs/Day Years Used Date Smoking Tobacco: Never Assessed Sex and Gender Information Value Date Recorded Sex Assigned at Not on file Gender Identity Not on file Sexual Orientation Not on file Plan of Treatment Not on file Care Teams Industrial Photographer Relationship Specialty Start Date End Date Khris Robertson MD PCP - General Internal Medicine 08/15/21
--- OUTSIDE RECORDS SUMMARY | 2024-07-27 08:07 | XMS_ITS | Referral Summary ---
Author Organization [facility] Address [address] [place] [address] Care Team Providers Care Flash Developer Name Role Phone Shaan Gray MD Primary Care Provider [phone] Ralf Wilson MD Unavailable Asa Aquino MD Unavailable [phone] Encounters Date Type Department Care Team Description 07/26/[address] [facility] Primary Care at [address] [address] Shaan Gray MD 07/26/[address] 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); Shortness of breath 05/11/2024 3:00 PM HAIR DRYER Office Visit [facility] Surgery [address] [place] [address] Dereje Osborn MD Coronary artery disease involving jena coronary artery of jena heart without angina pectoris (Primary Dx); 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) TAKE [...] 10 tablet 06/07/19 25 Active saw-vit E-sod [id number]-pyg 160-100-100 mg-unit-mcg tablet Take by mouth Active [...] 06/11/2021 Assessment & Plan (06/04/2022 5:50 PM HAIR DRYER): Monitor, recheck PSA Completed course of antibiotics, [...] days Assessment & Plan (06/11/2021 1:07 PM HAIR DRYER): Patient reports some inconsistent LUTS, reviewed patient provided records demonstrating PSA of 20.4 Patient already has follow-up scheduled with urologist at [facility] Will follow recommendations from Urology Coronary artery disease of n ative artery of jena heart with stable angina pectoris 08/12/2016 Overview (10/18/2016): 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 Assessment & Plan (06/04/2022 5:50 PM HAIR DRYER): Well controlled, blood pressure at target Continue [...] months Assessment & Plan (06/11/2021 1:06 PM HAIR DRYER): Not well controlled, patient has labile blood [...] diet Assessment & Plan (06/04/2022 5:49 PM HAIR DRYER): Generally well controlled, last lipids at target; [...] 05/17/2019 Influenza, Unspecified 10/14/2022(Deferr ed: Patient Refused),04/27/2014 Pearlfection (J&J) SARS-CoV-2 Vaccination 04/13/2021 Moderna SARS-CoV-2 Monovalen [...] on file Legal Sex Male 7:27 AM HAIR DRYER Gender Identity Male 05/06/2024 8:28 PM HAIR DRYER Sexual Orientation Straight 05/06/2024 8: 28 PM HAIR DRYER Last Filed Vital Signs Vital Sign Reading Time Taken Comments Blood Pressure 136/74 07/21/2024 3:01 PM HAIR DRYER Pulse 55 07/21/2024 3:01 PM HAIR DRYER Temperature 35.8 C (96.4 F) 03/25/2024 2:56 PM CDT Respiratory Rate 16 05/11/2024 2:52 PM HAIR DRYER Oxygen Saturation 98% 07/21/2024 3:01 PM HAIR DRYER Inhaled Oxygen Concentration - - Weight 64.9 kg (143 lb) 07/21/2024 3:01 PM HAIR DRYER Height 167.6 cm (5' 6 ) 07/21/2024 3:01 PM HAIR DRYER Body Mass Index 23.08 07/21/2024 3:01 PM HAIR DRYER Plan of Treatment Not on file Procedures Procedure Name Priority Date/Time Associated Diagnosis Comments HEPATITIS C ANTIBODY Routine 06/03/2022 12:05 PM HAIR DRYER Need for hepatitis C screening test from Last 3 Months or Most Recently Relevant to Health Maintenance Results * Hepatitis C antibody (06/03/2022 12:05 PM HAIR DRYER) Hep C Ab Nonreactive Nonreactive ANA[facility] ELAM [...] on 2019. Blood 06/03/2022 12:0 5 PM HAIR DRYER 06/03/2022 8:34 PM HAIR DRYER us Khris Robertson MD LAB MICROBIOLOGY - [place] [id number] [address] Department [place] [address] from Last 3 Months or Most Recently Relevant to Health Maintenance Insurance [facility] [employer] [facility] [employer] [facility] [employer] Care Teams Flash Developer Relationship Specialty Start Date End Date Shaan Gray MD [address] [facility] [address] [place] [address] PCP - General Family Medicine 02/18/23 Ralf Wilson MD [address] [facility] [address] [place] [address] Consulting Physician Cardiology 02/18/23 Asa Aquino MD [address] [facility] [address] [place] [address] Consulting Physician Urology 02/18/23
--- OUTSIDE RECORDS SUMMARY | 2024-07-27 08:07 | XMS_ITS | Encounter Summary ---
Author Organization [facility] Address [address] [place] [address] Care Team Providers Care Insurance Office Manager Name Role Phone Shaan Gray MD Primary Care Provider [phone] Ralf Wilson MD Unavailable [phone] Asa Aquino MD Unavailable [phone] Reason for Visit * Reason Onset Date Comments Medical Question/Miscellaneous 07/26/2024 Encounter Details Date Type Department Care Team (Late st Contact Info) Description 07/26/2024 Telephone [facility] Primary Care at [place] [address] [place] [address] Shaan Gray MD [address] [place] [address] [address] [place] [address] Medical Question/Miscellaneous Social History Tobacco [...] on file Legal Sex Male 7:27 AM WATER TREATMENT TECHNICIAN Gender Identity Male 05/06/2024 8:28 PM WATER TREATMENT TECHNICIAN Sexual Orientation Straight 05/06/2024 8: 28 PM WATER TREATMENT TECHNICIAN documented as of this encounter Miscellaneous Notes [...] Does message need to be routed? No R TREATMENT TECHNICIAN documented in this encounter Plan of Treatment Not on file documented as of this encounter Visit Diagnoses Not on filedocumented in this encounter Care Teams Insurance Office Manager Relationship Specialty Start Date End Date Shaan Gray MD [address] [facility] [address] [place] [address] PCP - General Family Medicine 02/18/23 Ralf Wilson MD [address] [facility] [address] [place] [address] Consulting Physician Cardiology 02/18/23 Asa Aquino MD [address] [place] [address] [place] [address] Consulting Physician Urology 02/18/23 documented as of this encounter
--- OUTSIDE RECORDS SUMMARY | 2024-07-27 08:07 | XMS_ITS | Clinical Summary ---
Author Organization [facility] Address [address] [facility] [place] [address] Care Team Providers Care Repairer Shoe Sticks Name Role Phone Khris Robertson MD Primary Care Provider Source Comments [facility],non-owned Affiliates and Associated Physician Practices is amultiple site organization consisting of ambulatory clinics and hospital sitesin [place], [place], [place]. This disclosure is being madepursuant to the Care Everywhere program and may not contain all information available regarding this patient. Last updated 18.[facility] [employer] Social History Tobacco Use Types Packs/Day Years [...] age to complete this topic Care Teams Repairer Shoe Sticks Relationship Specialty Start Date End Date Khris Robertson MD PCP - General Internal Medicine 08/15/21
--- OUTSIDE RECORDS SUMMARY | 2024-07-27 08:07 | XMS_ITS | Patient Health Summary ---
Author Organization [facility] Address [address] [place] [address] Care Team Providers Care Centerless Grinder Name Role Phone Khris Robretson MD Primary Care Provider [phone] Note from [facility],non-owned Affiliates and Associated Physician Practices is amultiple site organization consisting of ambulatory clinics and hospital sitesin [place], [place], [place] and [place]. This disclosure is being madepursuant to the Care Everywhere program and may not contain all information available regarding this patient. Last updated 18.[facility] Social History Tobacco Use Types Packs/Day Years Used Date Smoking Tobacco: Never Assessed Sex and Gender Information Value Date Recorded Sex Assigned at Not on file Gender Identity Not on file Sexual Orientation Not on file Procedures * DERMATOPATHOLOGY(Performed 02/03/2019) Results * DERMATOPATHOLOGY (02/03/2019 12:00 AM CDT) Case Report Dermatopathology Report Case: [id number] Authorizing Provider: Pat Horn DO Collected: 02/03/2019 12:00 AM Ordering Location: [facility] DermPath Lab Received: 02/04/2019 12:02 PM Pathologist: [...] The specimen consists of a shave measuring [id number]. Jar 0. 2:34 PM CDT DERMATOPATHOLOGY LABORATORY [...] characteristic determined by the Dermatopathology Laboratory at [facility], directed by Dr. Susie Jj. These tests need not be, and therefore are not, approved by the [place] Food and Drug Administration. The tests are used for clinical purposes. Billing Codes Specimen Charges Stain Charges 20589 1 38113 1 2:34 PM CDT DERMATOPATHOLOGY LABORATORY Embedded Images 2:34 PM CDT DERMATOPATHOLOGY LABORATORY Pathology/Cytolog y TISSUE SPECIMEN FROM SKIN / Unknown 02/03/2019 02/04/2019 12:02 PM CDT Pat Horn DO LAB - PATHOLOGY/C YTOLOGY ORDERABLES DERMATOPATHOLOGY LABORATORY [facility] - Department of Dermatology [address] [place] [address], 5th Floor Lab [address] [phone] Care Teams Centerless Grinder Relationship Specialty Start Date End Date Khris Robertson MD PCP - General Internal Medicine 08/15/21
--- OUTSIDE RECORDS SUMMARY | 2024-07-27 08:07 | XMS_ITS | Encounter Summary ---
Author Organization [facility] Healthcare Address [address] [place] [address] Care Team Providers Care Sand Conditioner Machine Name Role Phone Shaan Gray MD Primary Care Provider [phone] Ralf Wilson MD Unavailable [phone] Asa Aquino MD Unavailable [phone] Reason for Visit * Reason Onset Date Comments No Contact Made 07/26/2024 Encounter Details Date Type Department Care Team (Late st Contact Info) Description 07/26/2024 Nurse Triage [facility] Primary Care at [address] [address] Shaan Gray MD [address] [place] [address] [address] [place], [place] [id number] Social History Tobacco Use Types Packs/Day Years [...] on file Legal Sex Male 7:27 AM TURN DOWN WORKER Gender Identity Male 05/06/2024 8:28 PM TURN DOWN WORKER Sexual Orientation Straight 05/06/2024 8: 28 PM TURN DOWN WORKER documented as of this encounter Miscellaneous Notes * Telephone Encounter - Adelaide Mosquera MA - 07/26/2024 11:08 AM TURN DOWN WORKER Spoke with Garret. He said that he [...] out. He stated he was going to [facility] ED. DOWN WORKER * Telephone Encounter - Diann Melton RN - 07/26/2024 9:23 AM TURN DOWN WORKER Second attempt- [facility] to call back with any further questions or concerns Routing to Shaan Gray MD's office FYI Reason for Disposition Second attempt to contact caller AND no contact made. Phone number verified. Protocols used: No Contact or Duplicate Contact [id number] DOWN WORKER * Telephone Encounter - Diann Melton RN - 07/26/2024 9:03 AM TURN DOWN WORKER Regarding: Pressure on right side of lungs. Gas more at night when laying down flat feels needles,keeps burping ----- Message from Casi Neville sent at 07/26/2024 8:55 AM TURN DOWN WORKER ----- Symptom Based Call Chief Complaint(s): Pressure [...] scheduled for 08/09/24 at 9:00 AM at [facility]. Patient stated the pressure is not in his chest but on the right side of his lungs. Does message need to be routed? Yes-Action Needed DOWN WORKER documented in this encounter Plan of Treatment Not on file documented as of this encounter Visit Diagnoses Not on filedocumented in this encounter Care Teams Sand Conditioner Machine Relationship Specialty Start Date End Date Shaan Gray MD [address] [facility] [address] [place] [address] PCP - General Family Medicine 02/18/23 Ralf Wilson MD [address] [facility] [address] [place] [address] Consulting Physician Cardiology 02/18/23 Asa Aquino MD [address] [place] [address] [place] [address] Consulting Physician Urology 02/18/23 documented as of this encounter
--- OUTSIDE RECORDS SUMMARY | 2024-07-27 08:07 | XMS_ITS | Encounter Summary ---
Author Organization [facility] Address [address] [address] Care Team Providers Care Deliverer Pharmacy Name Role Phone Eric Dubois MD Primary Care Provider Eric Dubois MD Primary Care Provider Godwin Estrada MD Primary Care Provider Eric Dubois MD Primary Care Provider Korey Matthew MD Primary Care Provider [phone] Khris Robertson MD Primary Care Provider Adeline Lowery MD Primary Care Provider Khris Robertson MD Primary Care Provider [phone] Shaan Gray MD Primary Care Provider [phone] Ralf Wilson MD Unavailable [phone] Asa Aquino MD Unavailable [phone] Encounter Details Date Type Department Care Team (Late st Contact Info) Description 08/12/2016 Orders Only [facility] ProviderVince MD [address] [place] [address] Social History Tobacco Use Types Packs/Day Years Used Date Smoking Tobacco: Never Assessed Sex and Gender Information Value Date Recorded Sex Assigned at Not on file Legal Sex Male 7:27 AM FRONT DESK SUPERVISOR Gender Identity Male 05/06/2024 8:28 PM FRONT DESK SUPERVISOR Sexual Orientation Straight 05/06/2024 8: 28 PM FRONT DESK SUPERVISOR documented as of this encounter Plan of [...] documented as of this encounter Care Teams Deliverer Pharmacy Relationship Specialty [place] [address] [place] [address] PCP - General 08/23/16 08/07/17 [place] [address] [place] [address] PCP - General 03/01/16 08/22/16 Godwin Estrada MD [address] [facility] [address] [place] [address] PCP - General Family Medicine 08/08/17 10/09/17 [place] [address] [place] [address] PCP - General Internal Medicine 10/15/17 09/03/20 Korey Matthew MD [address] [place] [address] [place] [address] PCP - General Family Medicine 09/04/20 06/10/21 Khris Robertson MD [address] [place] [address] PCP - General Family Medicine 06/11/21 01/16/22 Adeline Lowery MD [address] [facility] [address] PCP - General Family Practice 01/17/22 01/21/22 Khris Robertson MD [address] [facility] [address] PCP - General Family Medicine 01/22/22 02/17/23 Shaan Gray MD 2 [facility] [address] [place] [address] PCP - General Family Medicine 02/18/23 Ralf Wilson MD [address] [facility] [address] [place] [address] Consulting Physician Cardiology 02/18/23 Asa Aquino MD [address] [place] [address] [place] [address] Consulting Physician Urology 02/18/23 documented as of this encounter
--- OUTSIDE RECORDS SUMMARY | 2024-07-27 08:07 | XMS_ITS | Encounter Summary ---
Author Organization [facility] Address [address] [facility] [address] Care Team Providers Care Bathhouse Keeper Name Role Phone Khris Robertson MD Primary Care Provider Encounter Details Date Type Department Care Team (Late st Contact Info) Description 02/04/2019 Lab Requisition [facility] [address] [facility] [address] [place] [address] Pat Horn DO [address] [facility] [address] [place] [address] Social History Tobacco Use Types Packs/Day Years [...] AM CDT) Case Report Dermatopathology Report Case: [id number] Authorizing Provider: Pat Horn DO Collected: 02/03/2019 12:00 AM Ordering Location: [facility] Received: 02/04/2019 12:02 PM Pathologist: [...] The specimen consists of a shave measuring [id number]. Jar 0. 2:34 PM CDT DERMATOPATHOLOGY LABORATORY [...] characteristic determined by the Dermatopathology Laboratory at [facility], directed by Dr. Susie Jj. These tests need not be, and therefore are not, approved by the [place] Food and Drug Administration. The tests are used for clinical purposes. Billing Codes Specimen Charges Stain Charges 91347 1 98805 1 2:34 PM CDT DERMATOPATHOLOGY LABORATORY Embedded Images 2:34 PM CDT DERMATOPATHOLOGY LABORATORY Pathology/Cytolog y TISSUE SPECIMEN FROM SKIN / Unknown 02/03/2019 02/04/2019 12:02 PM CDT Pat Horn DO LAB - PATHOLOGY/C YTOLOGY ORDERABLES DERMATOPATHOLOGY LABORATORY [facility] - Department of Dermatology [address] [place] [address], 5th Floor Lab [address] [phone] documented in this encounter Visit Diagnoses Not on filedocumented in this encounter Care Teams Bathhouse Keeper Relationship Specialty Start Date End Date Khris Robertson MD PCP - General Internal Medicine 08/15/21 documented as of this encounter
--- OUTSIDE RECORDS SUMMARY | 2024-07-27 08:07 | XMS_ITS | Clinical Summary ---
Author Organization [facility] Address [address] [place] [address] Care Team Providers Care Side Laster Staple Name Role Phone Unavailable Primary Care Provider Unavailabl e Social History Tobacco Use Types Packs/Day Years Used Date Smoking Tobacco: Never Assessed Sex and Gender Information Value Date Recorded Sex Assigned at Not on file Legal Sex Male 12:02 PM FOLDED CLOTH TAPER Gender Identity Not on file Sexual Orientation Not on file Plan of Treatment Upcoming Encounters Date Type Department Care Team (Late st Contact Info) Description 08/04/2024 1:30 PM CDT Office Visit [facility] - [address] [place] [address] Ralf Wilson MD [address] [place] [address] Health Maintenance Due Date Last Done Comments DTAP/TDAP/TD VACCINES (1 - Tdap) 1964 PNEUMOCOCCAL VACCINE 50+ YEARS (1 of 1 - PCV) 04/11/19 95 ZOSTER VACCINE (1 of 2) 1995 RSV VACCINE (60+ or ) (1 - 1-dose 75+ series) 2020 INFLUENZA VACCINE (#1) [address] [place] [address] [place] [address] [employer] PPO [facility]
--- OUTSIDE RECORDS SUMMARY | 2024-07-27 08:07 | XMS_ITS | Clinical Summary ---
Author Organization [facility] Address [facility] [place] [address] Care Team Providers Care Brokerage Office Manager Name Role Phone Shaan Gray MD Primary Care Provider [phone] Ralf Wilson MD Unavailable [phone] Asa qAuino MD Unavailable [phone] Allergies Active Allergy Reactions Criticality Noted Date [...] mg total) by mouth daily Send to 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 Graret Cortes is up to date on screening [...] 06/11/2021 Assessment & Plan (06/04/2022 5:50 PM RECORDS MANAGEMENT ANALYST): Monitor, recheck PSA Completed course of antibiotics, [...] days Assessment & Plan (06/11/2021 1:07 PM RECORDS MANAGEMENT ANALYST): Patient reports some inconsistent LUTS, reviewed patient provided records demonstrating PSA of 20.4 Patient already has follow-up scheduled with urologist at [facility] Will follow recommendations from Urology Coronary artery disease of n 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 08/12/2016 Overview (10/18/2016): 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 Assessment & Plan (06/04/2022 5:50 PM RECORDS MANAGEMENT ANALYST): Well controlled, blood pressure at target Continue [...] months Assessment & Plan (06/11/2021 1:06 PM RECORDS MANAGEMENT ANALYST): Not well controlled, patient has labile blood [...] diet Assessment & Plan (06/04/2022 5:49 PM RECORDS MANAGEMENT ANALYST): Generally well controlled, last lipids at target; [...] Department Care Team Description 07/26/2024 Nurse Triage [facility] Medical [facility] Primary Care at [address] [phone] Shaan Gray MD 07/26/2024 Telephone [facility] Primary Care at [address] [address] Shaan Gray MD Medical Question/Miscellaneo us 05/12/2024 Orders Only [facility] Surgery [address] [place] [address] [address] [place] [phone] Dereje Osborn MD 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 (HCC) (Primary Dx); Shortness of breath 05/11/2024 3:00 PM RECORDS MANAGEMENT ANALYST Office Visit [facility] Surgery [address] [place] [address] [address] [place] [phone] Dereje Osborn MD Coronary artery disease involving sycuan coronary artery of sycuan heart without angina pectoris (Primary Dx); 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 (HCC) 05/05/2024 [facility] Outreach [facility] Accountable Care Organization [address] [place] [address] Diann Prakash, RN 05/05/2024 Orders Only Cardiothoracic Surgery Sudarshan Coyne MD 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 (HCC) (Primary Dx) 05/04/2024 [facility] Outreach [facility] Care [address] [address] Diann Prakash, RN 05/03/2024 Telephone [facility] Cardiology at [address] [place] [address] Sudarshan Coyne MD 04/30/2024 3:00 PM RECORDS MANAGEMENT ANALYST Office Visit [facility] Medical Group Cardiology at [address] [place] [address] Sudarshan Coyne MD 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 (HCC) (Primary Dx) 04/28/2024 Orders Only [facility] Medical Group Cardiology [address] [place] [address] Enmanuel Delgadillo MD from Last 3 Months Immunizations Immunization Administration Dates Next Due Influenza, Quadrivalent, Hig h Dose, Preservative Free, Intrr 03/06/2023,06/11/2021 Influenza, Trivalent, High D ose, Split, Preservative Free, Intramuscular 03/25/2024,03/20/2018,03/04/2016 Influenza, Trivalent, Preser vative Free, Intramuscular 05/17/2019 Influenza, Unspecified 10/14/2022(Deferr ed: Patient Refused),04/27/2014 [employer] ([employer]) SARS-CoV-2 Vaccination 04/13/2021 Moderna SARS-CoV-2 Monovalen [...] artery disease of n 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 (HCC) 08/12/2016 Coronary artery disease of n 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 Family History Medical History Relation Name Comments Early Brother 1 Anirudh Killingbeck Other Brother 1 Anirudh Killingbeck Unknown; Heart disease Brother 2 Colt Killingbeck Heart disease Father Liana Acostabeck Other Father Liana Acostabeck Heart r elated; Cause of : Heart related Heart disease Father's Brother Richie Acostabeck Other Mother Unknown; Heart disease Paternal [...] on file Legal Sex Male 7:27 AM RECORDS MANAGEMENT ANALYST Gender Identity Male 05/06/2024 8:28 PM RECORDS MANAGEMENT ANALYST Sexual Orientation Straight 05/06/2024 8: 28 PM RECORDS MANAGEMENT ANALYST Obstetrics History Last Filed Vital Signs Vital Sign Reading Time Taken Comments Blood Pressure 136/74 07/21/2024 3:01 PM RECORDS MANAGEMENT ANALYST Pulse 55 07/21/2024 3:01 PM RECORDS MANAGEMENT ANALYST Temperature 35.8 C (96.4 F) 03/25/2024 2:56 PM CDT Respiratory Rate 16 05/11/2024 2:52 PM RECORDS MANAGEMENT ANALYST Oxygen Saturation 98% 07/21/2024 3:01 PM RECORDS MANAGEMENT ANALYST Inhaled Oxygen Concentration - - Weight 64.9 kg (143 lb) 07/21/2024 3:01 PM RECORDS MANAGEMENT ANALYST Height 167.6 cm (5' 6 ) 07/21/2024 3:01 PM RECORDS MANAGEMENT ANALYST Body Mass Index 23.08 07/21/2024 3:01 PM RECORDS MANAGEMENT ANALYST Plan of Treatment Health Maintenance Due Date [...] HEPATITIS C ANTIBODY Routine 06/03/2022 12:05 PM RECORDS MANAGEMENT ANALYST Need for hepatitis C screening test from Last 3 Months or Most Recently Relevant to Health Maintenance Results * Hepatitis C antibody (06/03/2022 12:05 PM RECORDS MANAGEMENT ANALYST) Hep C Ab Nonreactive Nonreactive ANAHI ELAM [...] on 2019. Blood 06/03/2022 12:0 5 PM RECORDS MANAGEMENT ANALYST 06/03/2022 8:34 PM RECORDS MANAGEMENT ANALYST us Khris Robertson MD LAB MICROBIOLOGY - GENERA L ORDERABLES Final Result ANA[facility] [id number] Department [place] [address] from Last 3 Months or Most Recently Relevant to Health Maintenance Insurance [facility] [employer] [facility] [employer] [facility] [employer] Care Teams Brokerage Office Manager Relationship Specialty Start Date End Date Shaan Gray MD [address] [facility] [address] [place] [address] PCP - General Family Medicine 02/18/23 Ralf Wilson MD [address] [facility] [address] [place], [place] [phone] Consulting Physician Cardiology 02/18/23 Asa Aquino MD [address] [place], [place] [phone] Consulting Physician Urology 02/18/23
--- OUTSIDE RECORDS SUMMARY | 2024-07-27 08:07 | XMS_ITS | Clinical Summary ---
Author Organization [facility] Address [address] [place] [address] Care Team Providers Care Film Coater Name Role Phone None, Provider MD Primary [...] 25 MG tabletIndication s:Coronary artery disease involving shag[place] coronary artery of [place] heart without angina pectoris,Benign hypertension Take 1 tablet (25 mg total) by mouth 2 (two) times daily. 180 tablet 02/04/20 20 Active clopidogrel 75 MG tabletIndication s:Coronary artery disease of shag[place] artery of [place] heart with stable angina pectoris (CMS/HCC) Take [...] artery disease Coronary artery disease invo lving shageluk coronary artery of shagel[place] heart without angina pectoris 10/09/2015 Overview (10/15/2018): Overview: Coronary artery disease of shageluk artery of shagel[place] heart with stable angina pectoris Overview: Coronary artery disease of shagel[place] artery of shagel[place] heart with stable angina pectoris Hyperlipidemia 10/09/2015 [...] Master's degree (e.g., MA, MS, Vanessa, MEd, PERINATAL NURSE, STEPHANIE) 07/14/2018 Sex and Gender Information Value [...] Comments LIPID PANEL Routine 05/28/2019 9:28 AM PUMP OPERATOR Mixed hyperlipidemia Benign hypertension from Last 3 Months or Most Recently Relevant to Health Maintenance Results * LIPID PANEL (05/28/2019 9:28 AM PUMP OPERATOR) CHOLESTEROL 137 <200.0 MG/DL 05/28/2019 10:[address] [facility] TRIGLYCERIDES 41 <150 MG/DL 05/28/2019 10:[address] [facility] HDL 66 >40.0 MG/DL 05/28/2019 10:[address] [facility] LDL (CALCULATED) 63 <100 MG/DL 05/28/19 20 10:[address] [facility] NON HDL CHOLESTEROL 71 <130 MG/DL 05/28 10:[address] [facility] CHOL/HDL RATIO 2.1 0.0 - 4.5 05/28/2019 10:[address] [facility] VLDL CALCULATION 8 5 - 55 MG/DL 05/28/2019 10:[address] [facility] LIPID INTERPRETATION 05/28/2019 10:[address] [facility] Comment: [facility] CONCENSUS REPORT RECOMMENDATIONS: ADULT CHILD LOW RISK: CHOLESTEROL <200 <170 TRIGLYCERIDE <150 --- HDL >=60 --- LDL <100 <110 BORDERLINE: CHOLESTEROL 200-239 170-199 TRIGLYCERIDE 150-199 --- HDL 40-59 --- LDL 100-159 110-129 HIGH RISK: CHOLESTEROL >=240 >=200 TRIGLYCERIDE >=200 --- HDL <40 --- LDL >=160 >=130 05/28/2019 9:28 AM PUMP OPERATOR Eric Dubois MD LABORATORY Final Re sult [facility] [address] [place] [address], from Last 3 Months or Most Recently Relevant to Health Maintenance Insurance [employer] [facility] Care Teams Film Coater Relationship Specialty Start Date End Date None, Provider, PCP - General UNKNOWN PHYSICIAN SPECIALTY 07/17/23
--- OUTSIDE RECORDS SUMMARY | 2024-07-27 08:07 | XMS_ITS | Continuity of Care Document ---
Author Name [facility] Organization [facility] Care Team Providers Care Blindstitch Machine Operator Name Role Phone [facility] Unavailable Unavailable Problems Combined list of problems from [facility] and [facility] facilities. It does not include entries that were removed or entered in error. 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 and [facility] facilities.Medications provided include 1) outpatient medications from the last 15 months, and 2) patient-reported medications. Medication Details Route Status Patient Instructions Prescription Expires Prescription Number Last Dispense Date Ordering Provider Order Date Order Qty Source AMLODIPINE BESYLATE 10MG TAB TAKE ONE-HALF TABLET BY MOUTH EVERY DAY ORAL ACTIVE BEBA MONTES 2014 [facility] ASPIRIN 81MG TAB,CHEWABL E CHEW ONE TABLET BY MOUTH EVERY DAY ORAL ACTIVE PASQUALE WYNNE 2013 [facility] CARVEDILOL 25MG TAB TAKE ONE-HALF TABLET BY MOUTH TWICE A DAY ORAL ACTIVE PASQUALE WYNNE 2013 [facility] SIMVASTATIN 80MG TAB TAKE ONE-HALF TABLET BY MOUTH AT BEDTIME ORAL ACTIVE PASQUALE WYNNE 2013 [facility] Immunizations Combined list of available immunizations from the [facility] and [facility] facilities. Immunization Series Date Given Administered By Site Reaction Lot Number CVX Code Drug Statement Processor Status Comments Source TDAP 2014 115 complet ed Left Deltoid 0.5ml IM [facility] INFLUENZA, UNSPECIFIED FORMULATION 2013 88 complet ed [facility] 2013 [facility] Social History Combined list of available smoking, tobacco, and other social history from Department of Defense and Veterans Affairs facilities. Social History Type Response Date Comment Sourc e Tobacco smoking status NHIS LIFETIME NON-USER OF TOBACCO 08/31/2013 [facility]
[2024-07-27 08:10] VITALS: O2SAT 99
[2024-07-27 08:14] LABS: Alanine Aminotransferase 17 U/L (6-50); Albumin Level 4.3 g/dL (3.5-5.1); Alkaline Phosphatase 62 U/L (38-126); Anion Gap 8 mmol/L (4-12); Aspartate Amino Transferase 31 U/L (17-59); Blood Urea Nitrogen 11 mg/dL (9-20); Calcium 8.6 mg/dL (8.4-10.2); Carbon Dioxide 25 mmol/L (22-30); Chloride 106 mmol/L (98-107); Estimated CRCL calculation 68 ml/min; Estimated Glomerular Filt Rate > 60; Glucose 100 mg/dL (65-110); Lipase 31 U/L (23-300); Potassium 4.1 mmol/L (3.4-5.0); Sodium 139 mmol/L (137-145)
--- NOTE | 2024-07-27 08:16 | ED.CHESTPAIN ---
HPI - Chest Pain General Chief Complaint: Chest Pain Stated Complaint: chest pain x 1 week, positional Time Seen by Provider: 07/27/24 07:41 History of Present Illness HPI narrative: Pt presents with chest pain when he lies down which improves when he sits up but the discomfort has been pretty steady for a week. Pt has known CAD with multiple stents that have 70 and 80% occlusions from recent cath by Dr Delgadillo who recommended CABG. Pt is seeking second opinon currently. Pt says when he sits up and belches he gets some relief so has been taking pepto bismol and has some dark stools now. Related Data Home Medications ?Medication ?Instructions ?Recorded ?Confirmed ?Last Taken ?Type carvedilol 25 mg tablet 25 mg PO Q12H 05/08/20 07/27/24 04/26/24 History clopidogrel 75 mg tablet (Plavix) 75 mg PO DAILY 05/08/20 07/27/24 04/26/24 History losartan 50 mg tablet 50 mg PO DAILY 05/08/20 07/27/24 04/26/24 History simvastatin 20 mg tablet 20 mg PO DAILY 05/08/20 05/28/21 Unknown History zinc sulfate 50 mg zinc (220 mg) 220 mg PO DAILY 05/08/20 05/28/21 Unknown History tablet ascorbic acid (vitamin C) 1,000 mg 1 g PO DAILY 07/24/20 04/26/24 04/26/24 History tablet aspirin 81 mg tablet,delayed 81 mg PO DAILY 07/24/20 07/27/24 04/26/24 History release (Adult Aspirin Regimen) cholecalciferol (vitamin D3) 25 25 mcg PO DAILY 07/24/20 04/26/24 04/26/24 History mcg (1,000 unit) capsule potassium gluconate 600 mg (99 mg) 600 mg PO DAILY 07/24/20 05/28/21 Unknown History tablet vitamin E 100 unit capsule 100 unit PO DAILY 07/24/20 05/28/21 Unknown History Allergies Allergy/AdvReac Type Severity Reaction Status Date / Time atorvastatin Allergy Intermediate Hives Verified 07/27/24 09:26 Review of Systems Review of Systems: All systems reviewed & are unremarkable except as noted in HPI and below PMFSH Past Medical History Medical History Decreased libido Eczema GERD (gastroesophageal reflux disease) History of CVA (cerebrovascular accident) Hyperlipidemia Hypertension Numbness and tingling in left hand Screening for prostate cancer Family History Family History Mother Hypertension Family history of cardiovascular disease Family history of lung cancer Sibling Hypertension Father Family history of cardiovascular disease Social History Social History Smoking status: Never smoker Alcohol intake: never Substance use: never Substance use type: does not use Living arrangements: with family Occupation/Education: retired Gender identity (if verbalized by the patient): Male Sexual Orientation (if Verbalized by the Patient): Straight or Heterosexual Spiritual care concerns: No Agree to blood products: Yes Exam Const: General: healthy appearing and no acute distress Nutritional Appearance: well nourished Orientation/consciousness: patient oriented x3 Limitations: no limitations Eyes: Conjunctivae: conjunctivae normal EOM: EOMs intact bilaterally Chest: Chest palpation & inspection: normal inspection of the chest Resp: Effort & Inspection: normal respiratory effort Auscultation: clear to auscultation bilaterally Cardio: Rate: regular rate Rhythm: regular rhythm GI: GI Palp: Yes Soft to palpation Auscultation: normal bowel sounds Rectal Exam: normal sphincter tone (heme neg stool) Skin: General skin exam: normal color Wounds: no wounds Neuro: General: patient oriented x3, moves all extremities and CN's II-XI intact bilaterally Speech: normal speech Extrem: General: normal to inspection and no clubbing, cyanosis or edema Psych: Mental Status: mental status grossly normal Affect: normal affect Attitude: cooperative Course Vital Signs Vital signs: Vital Signs Temperature 98.1 F 07/27/24 07:50 Pulse Rate 56 L 07/27/24 07:50 Respiratory Rate 16 07/27/24 07:50 Blood Pressure 202/94 H 07/27/24 07:50 Pulse Oximetry 100 07/27/24 07:50 Temperature 98.1 F 07/27/24 07:50 Pulse Rate 53 L 07/27/24 11:28 Respiratory Rate 16 07/27/24 11:28 Blood Pressure 175/72 H 07/27/24 11:28 Pulse Oximetry 97 07/27/24 11:28 Oxygen Delivery Room Air 07/27/24 08:10 MDM - Chest Pain MDM Narrative Medical decision making narrative: Pt presents with CP for about a week. Pt has known CAD so this will need to be ruled out as cause but seems more GI. will do cardiac work up. EKG unremarkable. first trop neg, 2nd ekg unremarkable. Pt had symptoms when rolled over for rectal and then was belching, ekg during event unremarkable. second trop neg. seems GI HEART score 3. will send home on pepcid and has appointment with Dr Guy next week. Lab Data 07/27/24 07:55 07/27/24 07:55 Labs: Lab Results 07/27/24 07/27/24 Range/Units 07:55 10:33 WBC 5.1 (4.5-10.0) K/mm3 RBC 4.35 L (4.6-6.20) M/mm3 Hgb 14.2 (14.0-18.0) g/dL Hct 41.4 L (42.0-52.0) % MCV 95.2 (80-100) fl MCH 32.6 (26-34) pg MCHC 34.3 (32-36) g/dl RDW 13.0 (11.5-14.5) % Plt Count 113 L (150-375) k/mm3 MPV 10.3 (7.4-10.4) fl Immature Gran % (Auto) 0.4 (0-0.5) % Neut % (Auto) 66.5 (45.5-73.1) % Lymph % (Auto) 18.9 (18.3-44.2) % [place] % (Auto) 10.7 H (2.6-8.5) % Eos % (Auto) 2.5 (0-4.4) % Baso % (Auto) 1.0 (0.2-1.2) % Lymph # (Auto) 0.97 (0.9-3.2) K/mm3 [place] # (Auto) 0.6 (0.1-0.6) K/mm3 Eos # (Auto) 0.1 (0-0.3) K/mm3 Baso # (Auto) 0.1 (0.0-0.1) K/mm3 Abs Immat Gran (auto) 0.02 (0.00-0.031) K/mm3 Absolute Neuts (auto) 3.4 (1.3-6.7) K/mm3 Absolute Nucleated RBC 0.000 (0.0-0.012) K/mm3 Nucleated RBC % 0.0 (0.0-0.2) % % Immature Plt Fraction 3.7 (0.9-11.2) % PT 14.0 (11.1-14.7) Seconds INR 1.1 APTT 27.7 (22.3-36.8) Seconds Sodium 139 (137-145) mmol/L Potassium 4.1 (3.4-5.0) mmol/L Chloride 106 (98-107) mmol/L Carbon Dioxide 25 (22-30) mmol/L Anion Gap 8 (4-12) mmol/L BUN 11 D (9-20) mg/dL Creatinine 0.66 L (0.7-1.3) mg/dL Estim Creat Clear Calc 68 ml/min Estimated GFR > 60 (59 - ) Glucose 100 (65-110) mg/dL Calcium 8.6 (8.4-10.2) mg/dL Total Bilirubin 1.0 (0.2-1.3) mg/dL AST 31 (17-59) U/L ALT 17 (6-50) U/L Alkaline Phosphatase 62 (38-126) U/L Troponin I < 0.012 < 0.012 (0.000-0.034) ng/mL Total Protein 8.0 (6.3-8.2) g/dL Albumin 4.3 (3.5-5.1) g/dL Lipase 31 (23-300) U/L Discharge Plan Discharge Clinical Impression: Chest pain Patient Disposition: Home, Self-Care Condition: Improved Instructions: Antibiotic Form, Chest Pain (ED), GERD (Gastroesophageal Reflux Disease) (DC) Patient Language: Indonesian Prescriptions: New famotidine [Pepcid] 20 mg tablet 20 mg PO DAILY Qty: 20 0RF No Action clopidogrel [Plavix] 75 mg tablet 75 mg PO DAILY losartan 50 mg tablet 50 mg PO DAILY carvedilol 25 mg tablet 25 mg PO Q12H Rx Instructions: must administer with a meal/food simvastatin 20 mg tablet 20 mg PO DAILY zinc sulfate 220 mg tablet 220 mg PO DAILY ascorbic acid (vitamin C) 1,000 mg tablet 1 g PO DAILY aspirin [Adult Aspirin Regimen] 81 mg tablet,delayed release (DR/EC) 81 mg PO DAILY cholecalciferol (vitamin D3) 25 mcg (1,000 unit) capsule 25 mcg PO DAILY potassium gluconate 600 mg (99 mg) tablet 600 mg PO DAILY vitamin E 100 unit capsule 100 unit PO DAILY sildenafil 100 mg tablet 100 mg PO DAILY PRN (Reason: sexual activity) Qty: 10 1RF Rx Instructions: administer 30 minutes to 4 hours before activity Follow-up/Referrals: Isaac,Shaan Clayton MD [Primary Care Provider] - Quality HEART score for chest pain patients History: slightly suspicious ECG: normal Age: > or = to 65 years Risk factors: 1 or 2 risk factors Troponin: < or = to 1x normal limit Heart score: 3
[2024-07-27 08:26] LABS: Troponin I < 0.012 ng/mL (0.000-0.034)
[2024-07-27 08:42] LABS: INR 1.1; Partial Thromboplastin Time 27.7 Seconds (22.3-36.8)
--- NOTE | 2024-07-27 09:15 | ECG_ITS ---
Test Date: 2024-07-27 09:20:09 Measurements Intervals [place] Rate: 44 P: 37 FL: 178 QRS: -4 QRSD: 89 T: 57 QT: 440 QTc: 379 Interpretive Statements SINUS BRADYCARDIA WITH SINUS ARRHYTHMIA Compared to ECG 07/27/2024 07:42:57 Sinus rhythm no longer present Electronically Signed On 07-28-2024 09:44:39 BLUEPRINT ENGINEER by Russell Tee M.D.
[2024-07-27 09:23] VITALS: BP 190/80; PULSE 56; RESP 12; O2SAT 99
[2024-07-27 09:25] VITALS: PULSE 56
[2024-07-27] MEDS: carvediloL 25 MG TABLET PO (09:25)
--- NOTE | 2024-07-27 10:31 | ECG_ITS ---
Test Date: 2024-07-27 10:36:21 Measurements Intervals [place] Rate: 51 P: 30 [place]: 181 QRS: -8 QRSD: 90 T: 43 QT: 436 QTc: 404 Interpretive Statements SINUS BRADYCARDIA Compared to ECG 07/27/2024 09:20:09 Sinus arrhythmia no longer present Electronically Signed On 07-28-2024 09:45:45 MATCH UP PERSON by Russell Tee M.D.
[2024-07-27 10:39] VITALS: BP 173/80; PULSE 50; RESP 16; O2SAT 98
[2024-07-27 11:01] LABS: Troponin I < 0.012 ng/mL (0.000-0.034)
[2024-07-27 11:28] VITALS: BP 175/72; PULSE 53; RESP 16; O2SAT 97
== END 2024-07-27 11:45 | disposition home or self-care (01) ==
PROVIDERS: Emergency Provider Emergency Medicine; PCP Family Medicine
DX: R07.9 Chest pain, unspecified (principal); K21.9 Gastro-esophageal reflux disease without esophagitis; E78.5 Hyperlipidemia, unspecified; I10 Essential (primary) hypertension
CPT/HCPCS: 36415; 71046; 80053; 83690; 84484; 85025; 85055; 85610; 85730; 93005; 99284; A9270

== ENCOUNTER 2025-02-28 12:48 | Emergency (ER) | payer MEDICARE, SELFPAY ==
[2025-02-28] VITALS (19 sets, daily range): BP systolic 147–194; BP diastolic 70–95; PULSE 47–70; RESP 11–22; TEMP 36.6; O2SAT 97–100
--- NOTE | ~2025-02-28 | CT_ITS ---
Exam: CT abdomen and pelvis with contrast Clinical History: [Left lower quadrant abdominal pain. ] Comparison: [ None available] Technique: Multiple axial CT images of the abdomen and pelvis were obtained with IV contrast. Sagittal and coronal reformatted images were obtained. FINDINGS: Lung bases: [Small opacities in the lower lungs. ] Liver: [ No mass.] [ No intrahepatic biliary duct dilatation.] Gallbladder: Borderline gallbladder wall thickening. No pericholecystic fluid. Common bile duct: [ Normal caliber.] [ No stones.] Spleen: [ Within normal limits.] Pancreas: The pancreatic duct is dilated in the mid and distal pancreas measuring up to 1 cm. Adrenals: [ No masses.] Kidneys: [ No masses. No hydronephrosis.][ ] Lymph nodes: [ No adenopathy in the abdomen or pelvis.] Stomach, small bowel and colon: Thickening of the cee of the proximal stomach. Thickening of the cee of the sigmoid colon. Differential includes incomplete bowel wall distention versus colitis. Peritoneum cavity: [ No mesenteric fat stranding or fluid.] Bladder: [ Unremarkable.]Prostate gland is enlarged and heterogeneous. Osseous structures: [ No acute fracture or destructive lesion.] [ Multilevel degenerative change in the visualized spine.] Moderate levoconvex curvature of the lumbar spine. Bones appear osteopenic. Abdominal aorta: [ No aneurysm.] Additional findings: Indeterminate 4.7 x 4.8 x 4.8 cm loculated fluid collection in the right hemipelvis. Differential includes but is not limited to a peritoneal inclusion cyst. IMPRESSION: 1. Thickening of the cee of the sigmoid colon. Differential includes incomplete bowel wall distention versus colitis. 2. Borderline gallbladder wall thickening. No pericholecystic fluid. The finding is nonspecific. Acute cholecystitis is possible in the appropriate clinical setting. If of concern, consider a HIDA scan. 3. The pancreatic duct is dilated in the mid and distal pancreas measuring up to 1 cm. A pancreatic mass MRI is suggested. Differential includes stricture or mass. 4. Thickening of the cee of the proximal stomach. Differential includes incomplete bowel wall distention, gastritis or mass. 5. Prostate gland is enlarged and heterogeneous. 6. Indeterminate 4.7 x 4.8 x 4.8 cm loculated fluid collection in the right hemipelvis. Differential includes but is not limited to a peritoneal inclusion cyst. Follow-up is recommended. Reviewed, dictated and finalized at location Q. IMPRESSION: 1. Thickening of the cee of the sigmoid colon. Differential includes incomple te bowel wall distention versus colitis. 2. Borderline gallbladder wall thickening. No pericholecystic fluid. The findin g is nonspecific. Acute cholecystitis is possible in the appropriate clinical s etting. If of concern, consider a HIDA scan. 3. The pancreatic duct is dilated in the mid and distal pancreas measuring up t o 1 cm. A pancreatic mass MRI is suggested. Differential includes stricture or mass. 4. Thickening of the cee of the proximal stomach. Differential includes incom plete bowel wall distention, gastritis or mass. 5. Prostate gland is enlarged and heterogeneous. 6. Indeterminate 4.7 x 4.8 x 4.8 cm loculated fluid collection in the right hem ipelvis. Differential includes but is not limited to a peritoneal inclusion cys t. Follow-up is recommended.
--- OUTSIDE RECORDS SUMMARY | 2025-02-28 11:15 | XMS_ITS | Encounter Summary ---
Author Organization [facility] Healthcare Address [address] [place] [address] Care Team Providers Care Medical Specialist Name Role Phone Shaan Gray MD Primary Care Provider [phone] Ralf Wilson MD Unavailable [phone] Asa Aquino MD Unavailable [phone] Reason for Visit * Reason Comments Abdominal Pain Friday had diarrhe a, stomach gurgling, yesterday had a heavy lead feeling when walking around, pelvic floor area felt heavy yesterday and that has slightly improved, general fatigue, lower back pain and pelvic pain, loose stool x 3 days, feels constant weight on L side of pelvis, urinary frequency, brain fog and reports he feels he can't walk straight yesterday. Pain with urination Encounter Details Date Type Department Care Team (Late st Contact Info) Description 02/28/2025 11:15 AM CDT Office Visit [facility] Convenient Care at [address] [address] Gwen Villatoro NP [address] [facility] [address] [place], [place] [id number] Abdominal pain, unspecified abdominal location (Primary Dx); LLQ abdominal pain Social History Tobacco Use Types Packs/Day Years [...] points, staff should administer the PHQ-9) 0 09/22/2024 Sex and Gender Information Value Date Recorded Sex Assigned at Not on file Legal Sex Male 7:27 AM PLATING EQUIPMENT TENDER Gender Identity Male 05/06/2024 8:28 PM PLATING EQUIPMENT TENDER Sexual Orientation Straight 05/06/2024 8: 28 PM PLATING EQUIPMENT TENDER documented as of this encounter Last Filed Vital Signs Vital Sign Reading Time Taken Comments Blood Pressure 122/60 02/28/2025 11:01 AM CDT Pulse 61 02/28/2025 11:01 AM CDT Temperature 36.6 C (97.8 F) 02/28/2025 11:01 AM CDT Respiratory Rate 20 02/28/2025 11:01 AM CDT Oxygen Saturation 97% 02/28/2025 11:01 AM CDT Inhaled Oxygen Concentration - - Weight 60.8 kg (134 lb) 02/28/2025 11:01 AM CDT Height - - Body Mass Index 22.3 09/22/2024 1:04 PM CDT documented in this encounter Patient Instructions * Patient Instructions* Gwen Villatoro, AIRCRAFT MAINTENANCE MANAGER - 02/28/2025 11:15 AM CDT Patient presents with: day had diarrhea, stomach gurgling, yesterday had a heavy lead feeling when walking around, pelvic floor area felt heavy yesterday and that has slightly improved, general fatigue, lower back pain and pelvic pain, loose stool x 3 days, feels constant weight on L side ofpelvis, urinary frequency, brain fog and reports he feels he can't walk straight yesterday. Pain with urination Concern for Diverticulitis versus other intraabdominal etiology. LLQ very tender upon exam. Component Ref Range & Units 02/28/25 1115 Color, Urine, POC Nehal Clarity, ur, POC Clear Cloudy Abnormal Glucose, ur, POC Negative Negative Bilirubin, ur, POC Negative Negative Ketones, ur, POC Negative Negative Specific [place], POC 1.003 - 1.030 1.020 Blood, ur, POC Negative Non-hemolyzed, trace Abnormal pH, ur, POC 5.0 - 8.0 6.5 Protein, ur, POC Negative 30. Abnormal Urobilinogen, urine, POC 0.2 - 1.0 mg/dL 0.2 Nitrite, ur, POC Negative Negative Leukocytes, ur, POC Negative Negative documented in this encounter Plan of Treatment Not on file documented as of this encounter Procedures Procedure Name Priority Date/Time Associated Diagnosis Comments POCT URINALYSIS DIPSTICK Routine 02/28/2025 11:15 AM CDT Abdominal pain, unspecified abdominal location documented in this encounter Results * (ABNORMAL) POCT urinalysis dipstick (02/28/2025 11:15 AM CDT) Color, Urine, POC Nehal Clarity, ur, POC Cloudy(A) Clear Glucose, ur, POC Negative Negative Bilirubin, ur, POC Negative Negative Ketones, ur, POC Negative Negative Specific [place], POC 1.020 1.003 - 1.030 Blood, ur, POC Non-hemolyze d, trace(A) Negative pH, ur, POC 6.5 5.0 - 8.0 Protein, ur, POC 30.(A) Negative Urobilinogen, urine, POC 0.2 0.2 - 1.0 mg/dL Nitrite, ur, POC Negative Negative Leukocytes, ur, POC Negative Negative Lot Number [id number] Urine 02/28/2025 11:1 5 AM CDT Gwen Villatoro AIRCRAFT MAINTENANCE MANAGER POINT OF CARE TEST ORDERAB LES Final Result documented in this encounter Visit Diagnoses Diagnosis Abdominal pain, unspecified abdominal location- Primary LLQ abdominal pain Abdominal pain, left lower quadrant documented in this encounter Care Teams Medical Specialist Relationship Specialty Start Date End Date Shaan Gray MD [address] [facility] [address] [place] [address] PCP - General Family Medicine 02/18/23 Ralf Wilson MD [address] [facility] [address] [place] [address] Consulting Physician Cardiology 02/18/23 Asa Aquino MD [address] [place] [address] Consulting Physician Urology 02/18/23 documented as of this encounter
--- OUTSIDE RECORDS SUMMARY | 2025-02-28 11:15 | XMS_ITS | Encounter Summary ---
Author Organization [facility] Healthcare Address [address] [place] [address] Care Team Providers Care Journeyman Wireman Name Role Phone Shaan Gray MD Primary Care Provider [phone] Ralf Wilson MD Unavailable [phone] Asa Aquino MD Unavailable [phone] Reason for Visit * Reason Comments Abdominal [...] Description 02/28/2025 11:15 AM CDT Office Visit [facility] Medical Group Convenient Care at [address] [address] Gwen Villatoro NP [address] [facility] [address] [place], [place] [id number] Abdominal pain, unspecified abdominal location (Primary Dx); [...] on file Legal Sex Male 7:27 AM HEALTH SERVICE COORDINATOR Gender Identity Male 05/06/2024 8:28 PM HEALTH SERVICE COORDINATOR Sexual Orientation Straight 05/06/2024 8: 28 PM HEALTH SERVICE COORDINATOR documented as of this encounter Last Filed [...] Patient Instructions * Patient Instructions* Gwen Villatoro, NETWORK SYSTEMS ENGINEER - 02/28/2025 11:15 AM CDT Patient presents [...] Negative Ketones, ur, POC Negative Negative Specific [place], POC 1.003 - 1.030 1.020 Blood, ur, [...] Negative Ketones, ur, POC Negative Negative Specific [place], POC 1.020 1.003 - 1.030 Blood, ur, POC Non-hemolyze d, trace(A) Negative pH, ur, POC 6.5 5.0 - 8.0 Protein, ur, POC 30.(A) Negative Urobilinogen, urine, POC 0.2 0.2 - 1.0 mg/dL Nitrite, ur, POC Negative Negative Leukocytes, ur, POC Negative Negative Lot Number [id number] Urine 02/28/2025 11:1 5 AM CDT Gwen Villatoro NETWORK SYSTEMS ENGINEER POINT OF CARE TEST ORDERAB LES Final Result documented in this encounter Visit Diagnoses Diagnosis Abdominal pain, unspecified abdominal location- Primary LLQ abdominal pain Abdominal pain, left lower quadrant documented in this encounter Care Teams Journeyman Wireman Relationship Specialty Start Date End Date Shaan Gray MD [address] [facility] [address] [place] [address] PCP - General Family Medicine 02/18/23 Ralf Wilson MD [address] [facility] [address] [place] [address] Consulting Physician Cardiology 02/18/23 Asa Aquino MD [address] [place] [address] Consulting Physician Urology 02/18/23 documented as of this encounter
--- OUTSIDE RECORDS SUMMARY | 2025-02-28 13:40 | XMS_ITS | Clinical Summary ---
Author Organization [facility] Address [facility] [place] [address] Care Team Providers Care Inside Outside Sales Representative Name Role Phone Shaan Gray MD Primary Care Provider [phone] Ralf Wilson MD Unavailable [phone] Asa Aquino MD Unavailable [phone] Allergies Active Allergy Reactions Criticality Noted Date Comments Atorvastatin Hives Medium 12/02/2022 Grass Pollen Rash Medium 11/03/2015 Medications aspirin 81 mg enteric coated tablet [...] Active triamcinolone (KENALOG) 0.05 % ointment Active aleisha extract 500 mg capsule Take by mouth A ctive acidophilus-pec tin, citrus 100 million cell-10 mg capsule Take by mouth Activ e simvastatin (ZOCOR) 20 mg tabletIndicatio ns:Coronary artery disease involving [place] coronary artery of [place] heart without angina pectoris Take 1 tablet (20 mg total) by mouth nightly 90 tablet 3 02/24/20 24 Active carvediloL (COREG) 25 mg tabletIndicatio ns:Benign hypertension TAKE 1 TABLET TWICE DAILY WITH MEALS 180 tablet 3 06/01/19 25 Active losartan (COZAAR) 50 mg tabletIndicatio ns:Benign hypertension TAKE 1 TABLET TWICE A DAY 180 tablet 3 06/01/19 25 Active saw-vit E-sod rny-skx-tjgo-py g 160-100-100 mg-unit-mcg tablet Take by mouth Active biotin 2,500 mcg capsule Take by mouth Acti ve omega-3 fatty acids-fish oil 300-1,000 mg capsule Take 2 capsules (2 g total) by mouth daily Active ASHWAGANDHA EXTRACT ORAL Take by mouth Act maria luz calcium carbonate-vitam in D3 2,500 mg (1,000 mg elemental)-800 unit tablet Take by mouth Acti ve vitamin E 200 unit capsule Take 1 capsule (200 Units total) by mouth daily Active mupirocin (BACTROBAN) 2 % ointment Apply topically 3 (three) times a day For 1 week 22 g 09/23/19 25 Active tadalafiL (CIALIS) 20 mg tablet Take 1 tablet (20 mg total) by mouth daily as needed for erectile dysfunction 10 tablet 3 09/23/19 25 Active Additional Information Patient not taking.Reported on 02/28/2025 tamsulosin (FLOMAX) 0.4 mg extended release capsuleIndicati ons:Benign prostatic hyperplasia with urinary frequency TAKE 1 CAPSULE DAILY 90 capsule 11/05/19 25 Active Additional Information Patient not taking.Reported on 02/28/2025 clopidogreL (PLAVIX) 75 mg tabletIndicatio ns:Coronary artery disease of [place] artery of [place] heart with stable angina pectoris TAKE 1 TABLET DAILY 90 tablet 1 01/04/20 25 Active famotidine (PEPCID) 20 mg tablet TAKE 1 TABLET TWICE A DAY NEEDED FOR HEARTBURN 60 tablet 2 02/03/20 25 Active famotidine (PEPCID) 20 mg tablet Take 1 tablet (20 mg total) by mouth 2 (two) times a day as needed for heartburn 60 tablet 2 11/06/19 25 025 Discontinued Active Problems Problem Noted Date Diagnosed Date Primary osteoarthritis involving multiple joints 09/22/2024 History of hernia repair 09/22/2024 Platelets decreased 03/25/2024 Nocturnal leg cramps 03/25/2024 [...] might cause enlargement of prostate Tamsulosin Add giovanni Mendez ds x 2 weeks, considering infectious prostatitis, [...] 06/11/2021 Assessment & Plan (06/04/2022 5:50 PM TRIPE WASHER): Monitor, recheck PSA Completed course of antibiotics, [...] days Assessment & Plan (06/11/2021 1:07 PM TRIPE WASHER): Patient reports some inconsistent LUTS, reviewed patient provided records demonstrating PSA of 20.4 Patient already has follow-up scheduled with urologist at [facility] Will follow recommendations from Urology Coronary artery disease of n ative artery of [place] heart with stable angina pectoris 08/12/2016 Overview (10/18/2016): Coronary artery disease of [place] artery of [place] heart with stable angina pectoris Assessment & [...] nightly Assessment & Plan (06/11/2021 1:06 PM TRIPE WASHER): Stable, well controlled; reports no in good [...] b.i.d. Assessment & Plan (06/04/2022 5:50 PM TRIPE WASHER): Well controlled, blood pressure at target Continue [...] months Assessment & Plan (06/11/2021 1:06 PM TRIPE WASHER): Not well controlled, patient has labile blood [...] diet Assessment & Plan (06/04/2022 5:49 PM TRIPE WASHER): Generally well controlled, last lipids at target; [...] Encounters Date Type Department Care Team Description 02/28/2025 11:15 AM CDT Office Visit [facility] Convenient Care at [address] [phone] Gwen Villatoro NP Abdominal pain, unspecified abdominal location (Primary Dx); LLQ abdominal pain 02/28/2025 Nurse Triage [facility] Primary Care at [address] [address] Shaan Gray MD 02/01/2025 Telephone [facility] Primary Care at [address] [address] Debbie Adams MA Chart Review (MED ADHERENCE) from Last 3 Months Immunizations Immunization Administration Dates Next Due Influenza, Quadrivalent, Hig h Dose, Preservative Free, Intrr 03/06/2023,06/11/2021 Influenza, Trivalent, High D ose, Split, Preservative Free, Intramuscular 03/25/2024,03/20/2018,03/04/2016 Influenza, Trivalent, Preser vative Free, Intramuscular 05/17/2019 Influenza, Unspecified 10/14/2022(Deferr ed: Patient Refused),04/27/2014 Nacho (J&J) SARS-CoV-2 Vaccination 04/13/2021 [facility] SARS-CoV-2 Monovalen t Vaccination (12+ YRS) 04/13/2021,09/01/2020 [...] artery disease of n ative artery of [place] heart with stable angina pectoris 08/12/2016 Coronary artery disease of n ative artery of [place] heart with stable angina pectoris Family History Medical History Relation Name Comments Early Brother 1 Anirudh Killingbeck Other Brother 1 Anirudh Killingbeck Unknown; Heart disease Brother 2 Colt Killingbeck Heart disease Father Percyval Killingbeck Other Father Percyval Killingbeck Heart r elated; Cause of : Heart related Heart disease Father's Brother Richie Killingbeck Other Mother Unknown; Heart disease Paternal Grandfather Sajan Killingbeck Rheum arthritis Neg Hx Relation Name Status Comments Brother 1 Anirudh Killingbeck Brother 2 Colt Killingbeck Alive Father Percyval Killingbeck (Age 64) Father's Brother Richie Killingbeck Alive Mother Paternal Grandfather Sajan Killingbeck Alive Social History Tobacco Use Types Packs/Day [...] on file Legal Sex Male 7:27 AM TRIPE WASHER Gender Identity Male 05/06/2024 8:28 PM TRIPE WASHER Sexual Orientation Straight 05/06/2024 8: 28 PM TRIPE WASHER Obstetrics History Last Filed Vital Signs Vital Sign Reading Time Taken Comments Blood Pressure 122/60 02/28/2025 11:01 AM CDT Pulse 61 02/28/2025 11:01 AM CDT Temperature 36.6 C (97.8 F) 02/28/2025 11:01 AM CDT Respiratory Rate 20 02/28/2025 11:01 AM CDT Oxygen Saturation 97% 02/28/2025 11:01 AM CDT Inhaled Oxygen Concentration - - Weight 60.8 kg (134 lb) 02/28/2025 11:01 AM CDT Height 165.1 cm (5' 5) 09/22/2024 1:04 PM CDT Body Mass Index 22.3 09/22/2024 1:04 PM CDT Plan of Treatment Health Maintenance Due Date Last Done Comments Hepatitis B Screening 1963 DTaP/Tdap/Td Vaccine (3 - Td or Tdap) 09/13/2024 09/13/2014, 11/16/2012 Covid-19 Vaccine (2024- 6 season) 2025 02/05/2022, 11/15/2021, 04/13/2021, Additional history exists Influenza Vaccine (#1) 2025 , 03/06/2023, 06/11/2021, Additional history exists Fall Risk Assessment 03/25/2025 03/25/2024, 04/22/2023, 03/05/2023, Additional history exists Well Visit 65+ 03/25/2025 03/25/2024 Depression Screening 09/22/2025 09/22/2024, 03/25/2024, 09/01/2023, Additional history exists Hepatitis C Screening Completed 06/03/2022 Pneumococcal vaccine 65+ Completed 024, 05/17/2019, 03/04/2016 Zoster Vaccine Completed 02/25/2024, 08/24, 08/31/2013 Procedures Procedure Name Priority Date/Time Associated Diagnosis Comments POCT URINALYSIS DIPSTICK Routine 02/28/2025 11:15 AM CDT Abdominal pain, unspecified abdominal location HEPATITIS C ANTIBODY Routine 06/03/2022 12:05 PM TRIPE WASHER Need for hepatitis C screening test from Last 3 Months or Most Recently Relevant to Health Maintenance Results * (ABNORMAL) POCT urinalysis dipstick (02/28/2025 11:15 AM CDT) Color, Urine, POC Nehal Clarity, ur, POC Cloudy(A) Clear Glucose, ur, POC Negative Negative Bilirubin, ur, POC Negative Negative Ketones, ur, POC Negative Negative Specific [place], POC 1.020 1.003 - 1.030 Blood, ur, POC Non-hemolyze d, trace(A) Negative pH, ur, POC 6.5 5.0 - 8.0 Protein, ur, POC 30.(A) Negative Urobilinogen, urine, POC 0.2 0.2 - 1.0 mg/dL Nitrite, ur, POC Negative Negative Leukocytes, ur, POC Negative Negative Lot Number [id number] Urine 02/28/2025 11:1 5 AM CDT Gwen Villatoro NP POINT OF CARE TEST ORDERAB LES Final Result * Hepatitis C antibody (06/03/2022 12:05 PM TRIPE WASHER) Hep C Ab Nonreactive Nonreactive ANAHI ELAM [...] on 2019. Blood 06/03/2022 12:0 5 PM TRIPE WASHER 06/03/2022 8:34 PM TRIPE WASHER Khris Robertson MD LAB MICROBIOLOGY - GENER[place] [id number] [address] Department [place] [address] from Last 3 Months or Most Recently Relevant to Health Maintenance Insurance [facility] [employer] Care Teams Inside Outside Sales Representative Relationship Specialty Start Date End Date Shaan Gray MD [address] [facility] [address] [place] [address] PCP - General Family Medicine 02/18/23 Ralf Wilson MD 2 [facility] [address] [place] [address] Consulting Physician Cardiology 02/18/23 Asa Aquino MD [address] [place] [address] Consulting Physician Urology 02/18/23
--- OUTSIDE RECORDS SUMMARY | 2025-02-28 13:40 | XMS_ITS | Encounter Summary ---
Author Organization [facility] Address [address] [facility] [address] Care Team Providers Care Head Turbine Operator Name Role Phone Khris Robertson MD Primary Care Provider Encounter Details Date Type Department Care Team (Late st Contact Info) Description 02/04/2019 Lab Requisition [facility] DermPath Lab [address] [facility] [place] [address] Pat Horn DO [address] [facility] [address] [place] [address] Social History Tobacco Use Types Packs/Day Years Used Date Smoking Tobacco: Never Assessed Sex and Gender Information Value Date Recorded Sex Assigned at Not on file Legal Sex Male 3:52 PM CDT Gender Identity Not on file Sexual Orientation Not on file documented as of this encounter Plan of Treatment Not on file documented as of this encounter Procedures Procedure Name Priority Date/Time Associated Diagnosis Comments DERMATOPATHOLOGY Routine 02/03/2019 12:0 0 AM CDT documented in this encounter Results * DERMATOPATHOLOGY (02/03/2019 12:00 AM CDT) Case Report Dermatopathology Report Case: [id number] Authorizing Provider: Pat Horn DO Collected: 02/03/2019 12:00 AM Ordering Location: [facility] DermPath Lab Received: 02/04/2019 12:02 PM Pathologist: Rafy Jj MD Specimen: Skin, right medial buttock 9 2:34 PM CDT DERMATOPATHOLOGY LABORATORY Final Diagnosis Specimen A. 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 2:34 PM CDT DERMATOPATHOLOGY LABORATORY Gross Description Specimen A: Received is one formalin filled container labeled with the patient's name and designated right medial buttock. The specimen consists of a shave measuring [id number]. Jar 0. 2:34 PM CDT DERMATOPATHOLOGY LABORATORY [...] characteristic determined by the Dermatopathology Laboratory at [facility], directed by Dr. Susie Jj. These tests need not be, and therefore are not, approved by the [place] Food and Drug Administration. The tests are used for clinical purposes. Billing Codes Specimen Charges Stain Charges 74974 1 [id number] 1 9 2:34 PM CDT DERMATOPATHOLOGY LABORATORY Embedded Images 2:34 PM CDT DERMATOPATHOLOGY LABORATORY Pathology/Cytolog y TISSUE SPECIMEN FROM SKIN / Unknown 02/03/2019 02/04/2019 12:02 PM CDT us Pat Horn DO LAB - PATHOLOGY/CYTOLOGY ORDERABLES Final Result DERMATOPATHOLOGY LABORATORY [facility] - Department of Dermatology [address] [place] [address], 5th Floor [facility] [address] [phone] documented in this encounter Visit Diagnoses Not on filedocumented in this encounter Care Teams Head Turbine Operator Relationship Specialty Start Date End Date Khris Robertson MD PCP - General Internal Medicine 08/15/21 09/30/24 documented as of this encounter
--- OUTSIDE RECORDS SUMMARY | 2025-02-28 13:40 | XMS_ITS | Encounter Summary ---
Author Organization [facility] Healthcare Address [facility] [place] [address] Care Team Providers Care Health Unit Supervisor Name Role Phone Shaan Gray MD Primary Care Provider [phone] Ralf Wilson MD Unavailable [phone] Asa Aquino MD Unavailable [phone] Reason for Visit * Reason Onset Date Comments urine symptoms 02/28/2025 Diarrhea 02/28/2025 Encounter Details Date Type Department Care Team (Late st Contact Info) Description 02/28/2025 Nurse Triage [facility] Medical Group Primary Care at [address] [address] Shaan Gray MD [address] [place] [address] [address] [place] [address] Social History Tobacco Use Types Packs/Day Years [...] on file Legal Sex Male 7:27 AM COMIC BOOK DESIGNER Gender Identity Male 05/06/2024 8:28 PM COMIC BOOK DESIGNER Sexual Orientation Straight 05/06/2024 8: 28 PM COMIC BOOK DESIGNER documented as of this encounter Miscellaneous Notes * Telephone Encounter - Adeline Davis RN - 02/28/2025 9:03 AM CDT Reason for Conversation urine symptoms and Diarrhea Background Over weekend had pelvic floor discomfort-that is gone now but remains with intermittent pain on urination. Also a few bouts of diarrhea since weekend. Onset 02/26/25 No fevers. No cloudiness, odor or blood to urine. No frequency or urgency on urination. No dizziness or weakness. No abdomen pain. No scrotum or penis swelling or drainage issues. Pt wants to be seen today, no available PCP appts. No available scheduled appts for [facility] EDW CC-pt is going to try to do a walk in and wait-pt understands this is not a guarantee for appt. Encouraged fluids and bland diet. Call back for new or worsening symptoms. Disposition See Today or Tomorrow in Office, See Within 3 Days in Office Reason for Disposition MILD diarrhea (e.g., 1-3 or more stools than normal in past 24 hours) diarrhea and present > 7 days (Exception: Chronic diarrhea that is not worse.) Patient wants to be seen .PDICTATION Protocols Used Urinary [id number] Frpcmsob-Chdxj-MB * Telephone Encounter - Adeline Davis RN - 02/28/2025 8:55 AM CDT Regarding: pain in scrotum area, lower back pain and pain with urination ----- Message from Celena Rodney sent at 02/28/2025 8:43 AM CDT ----- Symptom Based Call Chief Complaint(s): pain in scrotum area, lower back pain and pain with urination Duration: started on Friday What type of symptom(s) is the patient experiencing? Red Flag. Is the patient concerned they are experiencing a medical emergency requiring an ambulance? No Additional Comments: n/a Does message need to be routed? Yes-Action Needed documented in this encounter Plan of Treatment Not on file documented as of this encounter Visit Diagnoses Not on filedocumented in this encounter Care Teams Health Unit Supervisor Relationship Specialty Start Date End Date Shaan Gray MD [address] [facility] [address] [place] [address] PCP - General Family Medicine 02/18/23 Ralf Wilson MD [address] [place] [address] Consulting Physician Cardiology 02/18/23 Asa Aquino MD [address] [place] [address] Consulting Physician Urology 02/18/23 documented as of this encounter
--- OUTSIDE RECORDS SUMMARY | 2025-02-28 13:40 | XMS_ITS | Clinical Summary ---
Author Organization [employer] [facility] Address [address] [facility] [place] [address] Care Team Providers Care Silk Screen Repairer Name Role Phone Shaan Gray MD Primary Care Provider Allergies Active Allergy Reactions Criticality Noted Date Comments Aspirin Other (See Comments) Medium 08/04/2024 Reaction: bleeding, Atorvastatin Hives High 12/02/2022 Grass Pollen Unknown 11/03/2015 Losartan Unknown 11/30/2015 Pt states he is not allergic to this. Medications aspirin (NATALIIA CHEWABLE) 81 mg Tablet, Chewable Take 81 mg by mouth daily. Active acidophilus-pec tin, citrus 100 million cell-10 mg Capsule Take by mouth. Acti ve losartan (COZAAR) 50 mg tablet Take 50 mg by mouth 2 times daily. 5 Active Apple Extract 500 mg Capsule Take by mouth. Active carvediloL (COREG) 25 mg tablet Take 1 Tablet by mouth 2 times daily with meals. 5 Active cholecalciferol , vitamin D3, 1,000 unit Take 1,000 Units by mouth daily. Active clopidogreL (PLAVIX) 75 mg Tablet Take 75 mg by mouth daily. 5 Active cyanocobalamin (VITAMIN B-12) 1,000 mcg Tablet, Sublingual Take 1,000 mcg by mouth daily. Active Biotin 2,500 mcg Capsule Take by mouth. Act maria luz mupirocin (BACTROBAN) 2 % Ointment Apply to affected area. 4 Active omega-3 fatty acids-fish oil 300-1,000 mg Capsule Take 2 Grams by mouth daily. Active simvastatin (ZOCOR) 20 mg tablet TAKE 1 TABLET NIGHTLY Active tadalafiL (CIALIS) 20 mg tablet TAKE 1 TABLET BY MOUTH ONCE DAILY NEEDED FOR ERECTILE DYSFUNCTION . DO NOT EXCEED 1 PER 24 HOURS 5 Active tamsulosin (FLOMAX) 0.4 mg capsule Take 0.4 mg by mouth daily. Active Triamcinolone Acetonide 0.05 % Ointment Active turmeric root extract 500 mg Capsule Take by mouth. Activ e zinc SULFATE 50 mg zinc (220 mg) Tablet Take 220 mg by mouth daily. Active famotidine (PEPCID) 20 mg tablet Take 1 Tablet by mouth daily. 5 Active Active Problems Patient Care Coordination No te Formatting of this note migh t be different from the original. Recreational Director Dr. Wilson [place] Problem Noted Date Diagnosed Date Coronary artery disease invo lving [place] coronary artery of [place] heart without angina pectoris 08/04/2024 Benign hypertension 08/04/2024 Mixed hyperlipidemia 08/04/2024 S/P coronary artery stent placement 08/04/2024 Encounters Date Type Department Care Team Description 02/08/2025 External Device Data ST[facility] ABSTRACTION Provider, Abstract 01/25/2025 External Device Data [facility] ABSTRACTION Provider, Abstract 01/11/2025 External Device Data [facility] ABSTRACTION Provider, Abstract 12/29/2024 External Device Data [facility] [place]STRACTION Provider, Abstract 12/08/2024 External Device Data [facility] [place]STRACTION Provider, Abstract 12/08/2024 External Device Data [facility]STRACTION Provider, Abstract 12/08/2024 External Device Data [facility] ABSTRACTION Provider, Abstract 12/07/2024 External Device Data [facility] ABSTRACTION Provider, Abstract from Last 3 Months Social History Tobacco Use Types Packs/Day Years Used Date Smoking Tobacco: Never Smokeless Tobacco: Never Tobacco Cessation:Counseling Given: Not Answered Alcohol Use Standard Drinks/Week Comments Yes 0 (1 standard drink = 0.6 oz pur e alcohol) Sex and Gender Information Value Date Recorded Sex Assigned at Not on file Legal Sex Male 12:02 PM DRAWER LINER Gender Identity Not on file Sexual Orientation Not on file Last Filed Vital Signs Vital Sign Reading Time Taken Comments Blood Pressure 132/64 08/04/2024 12:45 PM CDT Pulse 68 08/04/2024 12:45 PM CDT Temperature - - Respiratory Rate - - Oxygen Saturation 97% 08/04/2024 12:45 PM CDT Inhaled Oxygen Concentration - - Weight 64.4 kg (142 lb) 08/04/2024 12:45 PM CDT Height 167.6 cm (5' 6) 08/04/2024 12:45 PM CDT Body Mass Index 22.92 08/04/2024 12:45 PM CDT Plan of Treatment Health Maintenance Due Date Last Done Comments RSV VACCINE (60+ or ) (1 - 1-dose 75+ series) 2020 DTAP/TDAP/TD VACCINES (3 - T d or Tdap) 09/13/2024 09/13/2014, 11/16/2012 INFLUENZA VACCINE (#1) 2024 , 03/06/2023, 06/11/2021, Additional history exists COVID-19 Vaccine (2024-2 6 season) 2025 02/05/2022, 11/15/2021, 04/13/2021, Additional history exists PNEUMOCOCCAL VACCINE 50+ YEARS Completed 0 09/04/2023, 05/17/2019, 03/04/2016 ZOSTER VACCINE Completed 02/25/2024, 08/24, 08/31/2013 Insurance AETNA PPO MCR Care Teams Silk Screen Repairer Relationship Specialty Start Date End Date Shaan Gray MD [address] [address] PCP - General Family Practice 08/03/24
--- OUTSIDE RECORDS SUMMARY | 2025-02-28 13:40 | XMS_ITS | Encounter Summary ---
Author Organization [facility] Address [address] [address] Care Team Providers Care Managed Services Consultant Name Role Phone Eric Dubois MD Primary Care Provider Eric Dubois MD Primary Care Provider Godwin Estrada MD Primary Care Provider Eric Dubois MD Primary Care Provider Korey Matthew MD Primary Care Provider [phone] Khris Robertson MD Primary Care Provider [phone] Adeline Lowery MD Primary Care Provider Khris Robertson MD Primary Care Provider [phone] Shaan Gray MD Primary Care Provider [phone] Ralf Wilson MD Unavailable [phone] Asa Aquino MD Unavailable [phone] Encounter Details Date Type Department Care Team (Late st Contact Info) Description 08/12/2016 [facility] Only [facility] ProviderVince MD [address] [place] [address] Social History Tobacco Use Types Packs/Day Years Used Date Smoking Tobacco: Never Assessed Sex and Gender Information Value Date Recorded Sex Assigned at Not on file Legal Sex Male 7:27 AM ADVERTISING WRITER Gender Identity Male 05/06/2024 8:28 PM ADVERTISING WRITER Sexual Orientation Straight 05/06/2024 8: 28 PM ADVERTISING WRITER documented as of this encounter Plan of [...] documented as of this encounter Care Teams Managed Services Consultant Relationship Specialty [place] [address] [place] [address] PCP - General 08/23/16 08/07/17 [place] [address] [place] [address] PCP - General 03/01/16 08/22/16 Godwin Estrada MD [address] [facility] [address] [place] [address] PCP - General Family Medicine 08/08/17 10/09/17 [place] [address] [place] [address] PCP - General Internal Medicine 10/15/17 09/03/20 Korey Matthew MD [address] [place] [address] PCP - General Family Medicine 09/04/20 06/10/21 Khris Robertson MD [address] [place] [address] PCP - General Family Medicine 06/11/21 01/16/22 Adeline Lowery MD [address] [facility] [address] PCP - General Family Practice 01/17/22 01/21/22 Khris Robertson MD [address] [facility] [place] [address] PCP - General Family Medicine 01/22/22 02/17/23 Shaan Gray MD 2 [facility] [address] [place] [address] PCP - General Family Medicine 02/18/23 Ralf Wilson MD 2 [facility] [address] [place] [address] Consulting Physician Cardiology 02/18/23 Asa Aquino MD [address] [place] [address] Consulting Physician Urology 02/18/23 documented as of this encounter
--- OUTSIDE RECORDS SUMMARY | 2025-02-28 13:40 | XMS_ITS | Clinical Summary ---
Author Organization [facility] Address [address] [place] [address] Care Team Providers Care Pedicab Driver Name Role Phone None, Provider MD Primary [...] 25 MG tabletIndication s:Coronary artery disease involving [place] coronary artery of [place] heart without angina pectoris,Benign hypertension Take 1 tablet (25 mg total) by mouth 2 (two) times daily. 180 tablet 02/04/20 20 Active clopidogrel 75 MG tabletIndication s:Coronary artery disease of [place] artery of [place] heart with stable angina pectoris Take 1 tablet (75 mg total) by [...] artery disease Coronary artery disease invo lving [place] coronary artery of [place] heart without angina pectoris 10/09/2015 Overview (10/15/2018): Overview: Coronary artery disease of [place] artery of [place] heart with stable angina pectoris Overview: Coronary artery disease of [place] artery of [place] heart with stable angina pectoris Hyperlipidemia 10/09/2015 [...] Odynophagia 10/11/2015 12/09/2018 Edema 01/06/2013 12/09/2018 Immunizations Immunization Administration Dates Next Due Fluzone Adult - [...] Master's degree (e.g., MA, MS, Vanessa, MEd, AIR GUN OPERATOR, STEPHANIE) 07/14/2018 Sex and Gender Information Value [...] 11:18 AM CDT Height 165.1 cm (5' 5) 02/08/2020 11:18 AM CDT Body Mass Index [...] 11/16/2022 11/16/2012 COVID-19 Vaccine (3 - season) 2025 04/13/2021, 09/01/2020 Influenza Adult (#1) 2025 05/17/2019, 03/20/2018, 03/20/2018, Additional history exists Pneumococcal Vaccine: 50+ Years Completed 05/17/2019, 03/04/2016 Meningococcal B Vaccine [...] Comments LIPID PANEL Routine 05/28/2019 9:28 AM MEDICAL LABORATORY SPECIALIST Mixed hyperlipidemia Benign hypertension from Last 3 Months or Most Recently Relevant to Health Maintenance Results * LIPID PANEL (05/28/2019 9:28 AM MEDICAL LABORATORY SPECIALIST) CHOLESTEROL 137 <200.0 MG/DL 05/28/2019 10:57 AM MEDICAL LABORATORY SPECIALIST [facility] TRIGLYCERIDES 41 <150 MG/DL 05/28/2019 10:57 AM MEDICAL LABORATORY SPECIALIST [facility] HDL 66 >40.0 MG/DL 05/28/2019 10:57 AM [facility] LDL (CALCULATED) 63 <100 MG/DL 05/28/19 20 10:57 AM [facility] NON HDL CHOLESTEROL 71 <130 MG/DL 05/28 10:57 AM [facility] CHOL/HDL RATIO 2.1 0.0 - 4.5 05/28/2019 10:57 AM [facility] VLDL CALCULATION 8 5 - 55 MG/DL 05/28/2019 10:57 AM [facility] LIPID INTERPRETATION 05/28/2019 10:57 AM [facility] Comment: [facility] REPORT RECOMMENDATIONS: ADULT CHILD LOW RISK: CHOLESTEROL <200 <170 TRIGLYCERIDE <150 --- HDL >=60 --- LDL <100 <110 BORDERLINE: CHOLESTEROL 200-239 170-199 TRIGLYCERIDE 150-199 --- HDL 40-59 --- LDL 100-159 110-129 HIGH RISK: CHOLESTEROL >=240 >=200 TRIGLYCERIDE >=200 --- HDL <40 --- LDL >=160 >=130 05/28/2019 9:28 AM MEDICAL LABORATORY SPECIALIST Eric Dubois MD LABORATORY Final Re sult [facility] [address] [place] [address], from Last 3 Months or Most Recently Relevant to Health Maintenance Insurance AETNA MEDICARE [facility] OFFICE OF [facility] Care Teams Pedicab Driver Relationship Specialty Start Date End Date None, Provider, PCP - General UNKNOWN PHYSICIAN SPECIALTY 07/17/23
--- OUTSIDE RECORDS SUMMARY | 2025-02-28 13:40 | XMS_ITS | Clinical Summary ---
Author Organization [facility] Address [address] [place] [address] Care Team Providers Care Salesman/Owner Name Role Phone Unavailable Primary Care Provider Unavailabl e Source Comments [facility],non-owned Affiliates and Associated Physician Practices is amultiple site organization consisting of ambulatory clinics and hospital sitesin [place], [place], [place] and [place]. This disclosure is being madepursuant to the Care Everywhere program and may not contain all information available regarding this patient. Last updated 18.[employer] Social History Tobacco Use Types Packs/Day Years [...] yrs (1 - 1-dose 75+ series) 2020 DEPRESSION SCREENING 05/26/2024 COVID-19 VACCINE (3 - 2024- season) 2025 04/13/2021, 09/01/2020 INFLUENZA VACCINE (#1) 2025 9, 03/20/2018, 03/20/2018, Additional history exists HEPATITIS B VACCINE Aged Out No longe r eligible based on patient's age to complete this topic HIB VACCINE Aged Out No longer eligi ble based on patient's age to complete this topic HPV VACCINE Aged Out No longer eligi ble based on patient's age to complete this topic MENINGOCOCCAL (Group B) VACCINE SHARED DECISION-MAKING Aged Out No longer eligible based on patient's age to complete this topic MENINGOCOCCAL GROUPS A/C/Y/W VACCINE Aged Out No longer eligible based on patient's age to complete this topic Insurance MEDICARE AETNA MEDICARE ADV
[2025-02-28 14:47] LABS: Hematocrit 37.9 % (42.0-52.0); Hemoglobin 13.1 g/dL (14.0-18.0); Immature Granulocyte Percent A 0.3 % (0-0.5); Lymphocytes Absolute Auto 1.17 K/mm3 (0.9-3.2); Mean Corpuscular HGB Conc 34.6 g/dl (32-36); Mean Corpuscular Hemoglobin 32.6 pg (26-34); Mean Corpuscular Volume 94.3 fl (80-100); Nucleated Red Blood Cells Absolute Auto 0.000 K/mm3 (0.0-0.012); Nucleated Red Blood Cells Perc 0.0 % (0.0-0.2); Platelet Count Result 124 k/mm3 (150-375); Red Blood Count 4.02 M/mm3 (4.6-6.20); White Blood Count 6.4 K/mm3 (4.5-10.0)
[2025-02-28 15:06] LABS: Alanine Aminotransferase 15 U/L (6-50); Albumin Level 4.1 g/dL (3.5-5.1); Alkaline Phosphatase 71 U/L (38-126); Anion Gap 7 mmol/L (4-12); Aspartate Amino Transferase 28 U/L (17-59); Bilirubin,Total 0.7 mg/dL (0.2-1.3); Blood Urea Nitrogen 19 mg/dL (9-20); Calcium 8.6 mg/dL (8.4-10.2); Carbon Dioxide 26 mmol/L (22-30); Chloride 105 mmol/L (98-107); Estimated CRCL calculation 52 ml/min; Estimated Glomerular Filt Rate > 60; Glucose 90 mg/dL (65-110); Lipase 193 U/L (23-300); Potassium 3.9 mmol/L (3.4-5.0); Sodium 138 mmol/L (137-145); Total Protein 7.4 g/dL (6.3-8.2)
--- OUTSIDE RECORDS SUMMARY | 2025-02-28 16:46 | XMS_ITS | Clinical Summary ---
Author Organization [facility] Address [address] [facility] [place] [address] Care Team Providers Care Director Of Coding Name Role Phone Unavailable Primary Care Provider Unavailabl e Source Comments [facility],non-owned Affiliates and Associated Physician Practices is amultiple site organization consisting of ambulatory clinics and hospital sitesin [place], [place], [place] and [place]. This disclosure is being madepursuant to the Care Everywhere program and may not contain all information available regarding this patient. Last updated 18.[facility] [employer] Social History Tobacco Use Types Packs/Day Years [...]
--- OUTSIDE RECORDS SUMMARY | 2025-02-28 16:46 | XMS_ITS | Encounter Summary ---
Author Organization [facility] Address [address] [facility] [place] [address] Care Team Providers Care Funeral Location Manager Name Role Phone Khris Robertson MD Primary Care Provider Encounter Details Date Type Department Care Team (Late st Contact Info) Description 02/04/2019 Lab Requisition [facility] Lab [address] [facility] [place] [address] Pat Horn DO [address] [facility] 3 [place] [address] Social History Tobacco Use Types Packs/Day Years [...] AM CDT) Case Report Dermatopathology Report Case: [id number] Authorizing Provider: Pat Horn DO Collected: 02/03/2019 12:00 AM Ordering Location: [facility] Lab Received: 02/04/2019 12:02 PM Pathologist: Rafy Jj MD Specimen: Skin, right medial buttock 9 2:34 PM CDT DERMATOPATHOLOGY LABORATORY Final Diagnosis Specimen A. 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 2:34 PM CDT DERMATOPATHOLOGY LABORATORY Gross Description Specimen A: Received is one formalin filled container labeled with the patient's name and designated right medial buttock. The specimen consists of a shave measuring [id number]. Jar 0. 2:34 PM CDT DERMATOPATHOLOGY LABORATORY [...] characteristic determined by the Dermatopathology Laboratory at [facility], directed by Dr. Susie Jj. These tests need not be, and therefore are not, approved by the [place] Food and Drug Administration. The tests are used for clinical purposes. Billing Codes Specimen Charges Stain Charges 20254 1 66413 1 9 2:34 PM CDT DERMATOPATHOLOGY LABORATORY Embedded Images 2:34 PM CDT DERMATOPATHOLOGY LABORATORY Pathology/Cytolog y TISSUE SPECIMEN FROM SKIN / Unknown 02/03/2019 02/04/2019 12:02 PM CDT us Pat Horn DO LAB - PATHOLOGY/CYTOLOGY ORDERABLES Final Result DERMATOPATHOLOGY LABORATORY [facility] - Department of Dermatology [address] [place] [address], 5th Floor [facility] [address] [phone] documented in this encounter Visit Diagnoses Not on filedocumented in this encounter Care Teams Funeral Location Manager Relationship Specialty Start Date End Date Khris Robertson MD PCP - General Internal Medicine 08/15/21 09/30/24 documented as of this encounter
--- OUTSIDE RECORDS SUMMARY | 2025-02-28 16:46 | XMS_ITS | Clinical Summary ---
Author Organization [facility] Address [address] [place] [address] Care Team Providers Care Cement Railroad Car Loader Name Role Phone None, Provider MD Primary [...] 25 MG tabletIndication s:Coronary artery disease involving [place] coronary artery of [place] heart without angina pectoris,Benign hypertension Take 1 tablet (25 mg total) by mouth 2 (two) times daily. 180 tablet 02/04/20 20 Active clopidogrel 75 MG tabletIndication s:Coronary artery disease of [place] artery of [place] heart with stable angina pectoris Take 1 [...] artery disease Coronary artery disease invo lving [place] coronary artery of [place] heart without angina pectoris 10/09/2015 Overview (10/15/2018): Overview: Coronary artery disease of [place] artery of [place] heart with stable angina pectoris Overview: Coronary artery disease of [place] artery of [place] heart with stable angina pectoris Hyperlipidemia 10/09/2015 [...] Master's degree (e.g., MA, MS, Vanessa, MEd, SUPERVISOR ALUMINUM FABRICATION, STEPHANIE) 07/14/2018 Sex and Gender Information Value [...] Comments LIPID PANEL Routine 05/28/2019 9:28 AM BREAD SUPERVISOR Mixed hyperlipidemia Benign hypertension from Last 3 Months or Most Recently Relevant to Health Maintenance Results * LIPID PANEL (05/28/2019 9:28 AM BREAD SUPERVISOR) CHOLESTEROL 137 <200.0 MG/DL 05/28/2019 10:57 AM BREAD SUPERVISOR [facility] TRIGLYCERIDES 41 <150 MG/DL 05/28/2019 10:57 AM BREAD SUPERVISOR [facility] HDL 66 >40.0 MG/DL 05/28/2019 10:57 AM [facility] LDL (CALCULATED) 63 <100 MG/DL 05/28/19 20 10:57 AM [facility] NON HDL CHOLESTEROL 71 <130 MG/DL 05/28 10:57 AM [facility] CHOL/HDL RATIO 2.1 0.0 - 4.5 05/28/2019 10:57 AM [facility] VLDL CALCULATION 8 5 - 55 MG/DL 05/28/2019 10:57 AM [facility] LIPID INTERPRETATION 05/28/2019 10:57 AM [facility] Comment: [facility] CON[facility]ENSUS REPORT RECOMMENDATIONS: ADULT CHILD LOW RISK: CHOLESTEROL <200 <170 TRIGLYCERIDE <150 --- HDL >=60 --- LDL <100 <110 BORDERLINE: CHOLESTEROL 200-239 170-199 TRIGLYCERIDE 150-199 --- HDL 40-59 --- LDL 100-159 110-129 HIGH RISK: CHOLESTEROL >=240 >=200 TRIGLYCERIDE >=200 --- HDL <40 --- LDL >=160 >=130 05/28/2019 9:28 AM BREAD SUPERVISOR Eric Dubois MD LABORATORY Final Re sult [facility] [address] [place] [address], from Last 3 Months or Most Recently Relevant to Health Maintenance Insurance AETNA MEDICARE [facility] OFFICE OF [facility] Care Teams Cement Railroad Car Loader Relationship Specialty Start Date End Date None, Provider, PCP - General UNKNOWN PHYSICIAN SPECIALTY 07/17/23
--- OUTSIDE RECORDS SUMMARY | 2025-02-28 16:46 | XMS_ITS | Clinical Summary ---
Author Organization [facility] Address [address] [facility] [place] [address] Care Team Providers Care Informatics Application Analyst Name Role Phone Shaan Gray MD Primary [...] migh t be different from the original. Art Educator Dr. Wilson [place] Problem Noted Date Diagnosed Date Coronary artery disease invo lving [place] coronary artery of [place] heart without angina pectoris 08/04/2024 Benign hypertension [...] on file Legal Sex Male 12:02 PM BOILER RIVETER Gender Identity Not on file Sexual Orientation [...] 08/31/2013 Insurance AETNA PPO MCR Care Teams Informatics Application Analyst Relationship Specialty Start Date End Date Shaan Gray MD [address] [address] PCP - General Family Practice 08/03/24
--- OUTSIDE RECORDS SUMMARY | 2025-02-28 16:46 | XMS_ITS | Encounter Summary ---
Author Organization [facility] Medical [facility] Address [address] [address] Care Team Providers Care Information Technology Director Name Role Phone Eric Dubois MD Primary Care Provider Eric Dubois MD Primary Care Provider Godwin Estrada MD Primary Care Provider Eric Dubois MD Primary Care Provider Korey Matthew MD Primary Care Provider [phone] Khris Robertson MD Primary Care Provider [phone] Adeline Lowery MD Primary Care Provider Khris Robertson MD Primary Care Provider [phone] Shaan Gray MD Primary Care Provider [phone] Ralf Wilson MD Unavailable [phone] Asa Aquino MD Unavailable [phone] Encounter Details Date Type Department Care Team (Late st Contact Info) Description 08/12/2016 [facility] Only [facility] ProviderVince MD [address] [place] [address] Social History Tobacco Use Types Packs/Day Years Used Date Smoking Tobacco: Never Assessed Sex and Gender Information Value Date Recorded Sex Assigned at Not on file Legal Sex Male 7:27 AM SLACK COOPER Gender Identity Male 05/06/2024 8:28 PM SLACK COOPER Sexual Orientation Straight 05/06/2024 8: 28 PM SLACK COOPER documented as of this encounter Plan of [...] documented as of this encounter Care Teams Information Technology Director Relationship Specialty [place] [address] [place] [address] PCP - General 08/23/16 08/07/17 [place] [address] [place] [address] PCP - General 03/01/16 08/22/16 Godwin Estrada MD [address] [facility] [address] [place] [address] PCP - General Family Medicine 08/08/17 10/09/17 [place] [address] [place] [address] PCP - General Internal Medicine 10/15/17 09/03/20 Korey Matthew MD [address] [place] [address] PCP - General Family Medicine 09/04/20 06/10/21 Khris Robertson MD [address] [place] [address] PCP - General Family Medicine 06/11/21 01/16/22 Adeline Lowery MD [address] [facility] [place] [address] PCP - General Family Practice 01/17/22 01/21/22 Khris Robertson MD [address] [facility] [place] [address] PCP - General Family Medicine 01/22/22 02/17/23 Shaan Gray MD 2 [facility] [address] [place] [address] PCP - General Family Medicine 02/18/23 Ralf Wilson MD 2 [facility] [address] [place] [address] Consulting Physician Cardiology 02/18/23 Asa Aquino MD [address] [place] [address] Consulting Physician Urology 02/18/23 documented as of this encounter
--- OUTSIDE RECORDS SUMMARY | 2025-02-28 16:46 | XMS_ITS | Encounter Summary ---
Author Organization [facility] Healthcare Address [facility] [place] [address] Care Team Providers Care Grainer Machine Name Role Phone Shaan Gray MD Primary Care Provider [phone] Ralf Wilson MD Unavailable [phone] Asa Aquino MD Unavailable Reason for Visit * Reason Onset Date Comments urine symptoms 02/28/2025 Diarrhea 02/28/2025 Encounter Details Date Type Department Care Team (Late st Contact Info) Description 02/28/2025 Nurse Triage [facility] Primary Care at [address] [id number] Shaan Gray MD [address] [place] [address] [address] [place] [address] Social History Tobacco Use Types [...] on file Legal Sex Male 7:27 AM MEDICAL AND HEALTH SERVICES MANAGER Gender Identity Male 05/06/2024 8:28 PM MEDICAL AND HEALTH SERVICES MANAGER Sexual Orientation Straight 05/06/2024 8: 28 PM MEDICAL AND HEALTH SERVICES MANAGER documented as of this encounter Miscellaneous Notes [...] PCP appts. No available scheduled appts for [facility] EDW CC-pt is going to [...] to be seen .PDICTATION Protocols Used Urinary Btrbcqyy-Dyejl-PH Qqqeiknq-Qrarm-EC * Telephone Encounter - Adeline Davis RN [...] on filedocumented in this encounter Care Teams Grainer Machine Relationship Specialty Start Date End Date Shaan Gray MD [address] [facility] [address] [place] [address] PCP - General Family Medicine 02/18/23 Ralf Wilson MD [address] [place] [address] Consulting Physician Cardiology 02/18/23 Asa Aquino MD [address] [place] [address] Consulting Physician Urology 02/18/23 documented as of this encounter
--- OUTSIDE RECORDS SUMMARY | 2025-02-28 16:46 | XMS_ITS | Clinical Summary ---
Author Organization [facility] Address [facility] [place] [address] Care Team Providers Care Multimedia Educational Specialist Name Role Phone Shaan Gray MD Primary Care Provider [phone] Ralf Wilson MD Unavailable [phone] Asa Aquino MD Unavailable [phone] Allergies Active Allergy Reactions Criticality Noted Date [...] 20 mg tabletIndicatio ns:Coronary artery disease involving grayling coronary artery of grayling heart without angina pectoris Take 1 tablet (20 mg total) by mouth nightly 90 tablet 3 02/24/20 24 Active carvediloL (COREG) 25 mg tabletIndicatio ns:Benign hypertension TAKE 1 TABLET TWICE DAILY WITH MEALS 180 tablet 3 06/01/19 25 Active losartan (COZAAR) 50 mg tabletIndicatio ns:Benign hypertension TAKE 1 TABLET TWICE A DAY 180 tablet 3 06/01/19 25 Active saw-vit E-sod zei-tsx-dfky-py g 160-100-100 mg-unit-mcg tablet Take by mouth [...] 75 mg tabletIndicatio ns: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 TAKE 1 [...] 06/11/2021 Assessment & Plan (06/04/2022 5:50 PM VISUAL SPECIALIST): Monitor, recheck PSA Completed course of antibiotics, [...] days Assessment & Plan (06/11/2021 1:07 PM VISUAL SPECIALIST): Patient reports some inconsistent LUTS, reviewed patient provided records demonstrating PSA of 20.4 Patient already has follow-up scheduled with urologist at [facility] Will follow recommendations from Urology 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 Assessment & Plan (06/04/2022 5:50 PM VISUAL SPECIALIST): Well controlled, blood pressure at target Continue [...] months Assessment & Plan (06/11/2021 1:06 PM VISUAL SPECIALIST): Not well controlled, patient has labile blood [...] diet Assessment & Plan (06/04/2022 5:49 PM VISUAL SPECIALIST): Generally well controlled, last lipids at target; [...] Description 02/28/2025 11:15 AM CDT Office Visit [facility] at [address] [phone] Gwen Villatoro NP Abdominal pain, unspecified abdominal location (Primary Dx); LLQ abdominal pain 02/28/2025 Nurse Triage [facility] Primary Care at [address] [address] Shaan Gray MD 02/01/2025 Telephone [facility] Primary Care at [address] [address] Debbie Adams MA Chart Review (MED ADHERENCE) from Last 3 Months Immunizations Immunization Administration Dates Next Due Influenza, Quadrivalent, Hig h Dose, Preservative Free, Intrr 03/06/2023,06/11/2021 Influenza, Trivalent, High D ose, Split, Preservative Free, Intramuscular 03/25/2024,03/20/2018,03/04/2016 Influenza, Trivalent, Preser vative Free, Intramuscular 05/17/2019 Influenza, Unspecified 10/14/2022(Deferr ed: Patient Refused),04/27/2014 Nacho (J&J) SARS-CoV-2 Vaccination 04/13/2021 [facility] SARS-CoV-2 Monovalen t Vaccination (12+ YRS) 04/13/2021,09/01/2020 [...] artery disease of n ative artery of grayling heart with stable angina pectoris 08/12/2016 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 Family History [...] on file Legal Sex Male 7:27 AM VISUAL SPECIALIST Gender Identity Male 05/06/2024 8:28 PM VISUAL SPECIALIST Sexual Orientation Straight 05/06/2024 8: 28 PM VISUAL SPECIALIST Obstetrics History Last Filed Vital Signs Vital [...] HEPATITIS C ANTIBODY Routine 06/03/2022 12:05 PM VISUAL SPECIALIST Need for hepatitis C screening test from Last 3 Months or Most Recently Relevant to Health Maintenance Results * (ABNORMAL) POCT urinalysis dipstick (02/28/2025 11:15 AM CDT) Color, Urine, POC Nehal Clarity, ur, POC Cloudy(A) Clear Glucose, ur, POC Negative Negative Bilirubin, ur, POC Negative Negative Ketones, ur, POC Negative Negative Specific [place], POC 1.020 1.003 - 1.030 Blood, ur, POC Non-hemolyze d, trace(A) Negative pH, ur, POC 6.5 5.0 - 8.0 Protein, ur, POC 30.(A) Negative Urobilinogen, urine, POC 0.2 0.2 - 1.0 mg/dL Nitrite, ur, POC Negative Negative Leukocytes, ur, POC Negative Negative Lot Number [id number] Urine 02/28/2025 11:1 5 AM CDT Gwen Villatoro NP POINT OF CARE TEST ORDERAB LES Final Result * Hepatitis C antibody (06/03/2022 12:05 PM VISUAL SPECIALIST) Hep C Ab Nonreactive Nonreactive A[facility] ELAM [...] on 2019. Blood 06/03/2022 12:0 5 PM VISUAL SPECIALIST 06/03/2022 8:34 PM VISUAL SPECIALIST Khris Robertson MD LAB MICROBIOLOGY - GENERA [place] [id number] [address] [facility] [place] [address] from Last 3 Months or Most Recently Relevant to Health Maintenance Insurance [facility] [employer] [facility] [employer] [facility] [employer] Care Teams Multimedia Educational Specialist Relationship Specialty Start Date End Date Shaan Gray MD [address] [facility] [address] [place] [address] PCP - General Family Medicine 02/18/23 Ralf Wilson MD [address] [facility] [address] [place] [address] Consulting Physician Cardiology 02/18/23 Asa Aquino MD [address] [place] [address] Consulting Physician Urology 02/18/23
--- NOTE | 2025-02-28 17:52 | ED.ABDPAIN ---
HPI - Abdominal Pain General Chief Complaint: Abdominal Pain Stated Complaint: abdominal pain-sent by [facility] Time Seen by Provider: 02/28/25 16:23 Source: patient Mode of arrival: ambulatory Limitations: no limitations History of Present Illness HPI narrative: 79-year-old with a history of hypertension, CAD, hyperlipidemia presents to the ER with a complains of lower abdominal pain for past 2 days. He also states that he has been having diarrhea. His also has similar symptoms. Denies any fever or chills. No history of nausea vomiting. Denies any blood in the stool. MD elicited complaint: abdominal pain Onset (ago): day(s) (3) Pain Consistency: constant Location: LLQ Severity: moderate Quality: cramping Radiation: none Migration to: no migration Exacerbating factors: nothing Relieving factors: nothing Context: confirms possible food poisoning Associated symptoms: denies other symptoms Related Data Home Medications ?Medication ?Instructions ?Recorded ?Confirmed ?Last Taken ?Type carvedilol 25 mg tablet 25 mg PO Q12H 05/08/20 07/27/24 04/26/24 History clopidogrel 75 mg tablet (Plavix) 75 mg PO DAILY 05/08/20 07/27/24 04/26/24 History losartan 50 mg tablet 50 mg PO DAILY 05/08/20 07/27/24 04/26/24 History simvastatin 20 mg tablet 20 mg PO DAILY 05/08/20 05/28/21 Unknown History zinc sulfate 50 mg zinc (220 mg) 220 mg PO DAILY 05/08/20 05/28/21 Unknown History tablet ascorbic acid (vitamin C) 1,000 mg 1 g PO DAILY 07/24/20 04/26/24 04/26/24 History tablet aspirin 81 mg tablet,delayed 81 mg PO DAILY 07/24/20 07/27/24 04/26/24 History release (Adult Aspirin Regimen) cholecalciferol (vitamin D3) 25 25 mcg PO DAILY 07/24/20 04/26/24 04/26/24 History mcg (1,000 unit) capsule potassium gluconate 600 mg (99 mg) 600 mg PO DAILY 07/24/20 05/28/21 Unknown History tablet vitamin E 100 unit capsule 100 unit PO DAILY 07/24/20 05/28/21 Unknown History Allergies Allergy/AdvReac Type Severity Reaction Status Date / Time atorvastatin Allergy Intermediate Hives Verified 02/28/25 12:49 Review of Systems Review of Systems: All systems reviewed & are unremarkable except as noted in HPI and below Constitutional: Constitutional: Reports no additional constitutional complaints Eyes: Eyes: Reports no additional eye complaints ENT: Reports system reviewed and no additional complaints, except as documented Cardiovascular: Cardiovascular: Reports no additional cardiovascular complaints Respiratory: Respiratory: Reports no additional respiratory complaints Gastrointestinal: Gastrointestinal: Reports as per HPI Musculoskeletal: Musculoskeletal: Reports no additional musculoskeletal complaints Integumentary/Breasts: Skin/Breast: Reports system reviewed and no additional complaints, except as docu Neurologic: Reports system reviewed and no additional complaints, except as documented PMFSH Past Medical History Medical History History of CVA (cerebrovascular accident) Numbness and tingling in left hand Screening for prostate cancer Decreased libido Eczema GERD (gastroesophageal reflux disease) Hyperlipidemia Hypertension Family History Family History Mother Hypertension Family history of cardiovascular disease Family history of lung cancer Sibling Hypertension Father Family history of cardiovascular disease Social History Social History Smoking status: Never smoker Alcohol intake: never Substance use: never Substance use type: does not use Living arrangements: with family Occupation/Education: retired Gender identity (if verbalized by the patient): Male Sexual Orientation (if Verbalized by the Patient): Straight or Heterosexual Spiritual care concerns: No Agree to blood products: Yes Exam Narrative: GENERAL: Well-appearing, well-nourished, and in no acute distress. HEAD: Normocephalic, atraumatic. EYES: PERRLA and EOMI. ENT: Nares clear, no rhinorrhea or epistaxis. Mucous membranes moist. NECK: Supple. CHEST: Clear to auscultation. No respiratory distress. HEART: Regular rate and rhythm. No murmur heard. Normal peripheral pulses. ABDOMEN: Soft, mild tenderness in the lower abdomen , nondistended, normal active bowel sounds. EXTREMITIES: Normal range of motion. No edema. SKIN: Warm, dry, no rash. NEURO: No focal deficits. Alert and oriented x3. PSYCH: Normal mood and affect. Course Course Emergency Course: Notified patient about his lab work, CT findings. Advised to take antibiotic as prescribed. 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 Vital Signs Vital signs: Vital Signs Temperature 36.6 C 02/28/25 12:54 Pulse Rate 58 L 02/28/25 12:54 Respiratory Rate 15 02/28/25 12:54 Blood Pressure 147/75 H 02/28/25 12:54 Pulse Oximetry 98 02/28/25 12:54 Oxygen Delivery Room Air 02/28/25 12:54 Temperature 36.6 C 02/28/25 12:54 Pulse Rate 65 02/28/25 16:48 Respiratory Rate 20 02/28/25 16:48 Blood Pressure 184/84 H 02/28/25 16:48 Pulse Oximetry 100 02/28/25 16:48 Oxygen Delivery Room Air 02/28/25 12:54 MDM - Abdominal Pain Differential Diagnosis Differential diagnosis: Likely abdominal pain, diverticulitis and gastroenteritis Lab Data 02/28/25 14:39 02/28/25 14:39 Labs: Lab Results 02/28/25 Range/Units 14:39 WBC 6.4 (4.5-10.0) K/mm3 RBC 4.02 L (4.6-6.20) M/mm3 Hgb 13.1 L (14.0-18.0) g/dL Hct 37.9 L (42.0-52.0) % MCV 94.3 (80-100) fl MCH 32.6 (26-34) pg MCHC 34.6 (32-36) g/dl RDW 12.9 (11.5-14.5) % Plt Count 124 L (150-375) k/mm3 MPV 9.9 (7.4-10.4) fl Immature Gran % (Auto) 0.3 (0-0.5) % Neut % (Auto) 67.5 (45.5-73.1) % Lymph % (Auto) 18.4 (18.3-44.2) % [place] % (Auto) 11.9 H (2.6-8.5) % Eos % (Auto) 1.4 (0-4.4) % Baso % (Auto) 0.5 (0.2-1.2) % Lymph # (Auto) 1.17 (0.9-3.2) K/mm3 [place] # (Auto) 0.8 H (0.1-0.6) K/mm3 Eos # (Auto) 0.1 (0-0.3) K/mm3 Baso # (Auto) 0.0 (0.0-0.1) K/mm3 Abs Immat Gran (auto) 0.02 (0.00-0.031) K/mm3 Absolute Neuts (auto) 4.3 (1.3-6.7) K/mm3 Absolute Nucleated RBC 0.000 (0.0-0.012) K/mm3 Nucleated RBC % 0.0 (0.0-0.2) % Sodium 138 (137-145) mmol/L Potassium 3.9 (3.4-5.0) mmol/L Chloride 105 (98-107) mmol/L Carbon Dioxide 26 (22-30) mmol/L Anion Gap 7 (4-12) mmol/L BUN 19 (9-20) mg/dL Creatinine 0.86 (0.7-1.3) mg/dL Estim Creat Clear Calc 52 ml/min Estimated GFR > 60 (59 - ) Glucose 90 (65-110) mg/dL Calcium 8.6 (8.4-10.2) mg/dL Total Bilirubin 0.7 (0.2-1.3) mg/dL AST 28 (17-59) U/L ALT 15 (6-50) U/L Alkaline Phosphatase 71 (38-126) U/L Total Protein 7.4 (6.3-8.2) g/dL Albumin 4.1 (3.5-5.1) g/dL Lipase 193 (23-300) U/L Imaging Data Radiologist's impression: ITS Impressions Abdomen/Pelvis CT 02/28/25 15:34 IMPRESSION: 1. Thickening of the cee of the sigmoid colon. Differential includes incomplete bowel wall distention versus colitis. 2. Borderline gallbladder wall thickening. No pericholecystic fluid. The finding is nonspecific. Acute cholecystitis is possible in the appropriate clinical setting. If of concern, consider a HIDA scan. 3. The pancreatic duct is dilated in the mid and distal pancreas measuring up to 1 cm. A pancreatic mass MRI is suggested. Differential includes stricture or mass. 4. Thickening of the cee of the proximal stomach. Differential includes incomplete bowel wall distention, gastritis or mass. 5. Prostate gland is enlarged and heterogeneous. 6. Indeterminate 4.7 x 4.8 x 4.8 cm loculated fluid collection in the right hemipelvis. Differential includes but is not limited to a peritoneal inclusion cyst. Follow-up is recommended. Discharge Plan Discharge Clinical Impression: Colitis Patient Disposition: Home Condition: Stable Instructions: Colitis (ED) Patient Language: Mauritian Prescriptions: New metronidazole 500 mg tablet 500 mg PO Q8H 7 Days Qty: 21 0RF ciprofloxacin HCl [Cipro] 500 mg tablet 500 mg PO Q12H Qty: 10 0RF No Action clopidogrel [Plavix] 75 mg tablet 75 mg PO DAILY losartan 50 mg tablet 50 mg PO DAILY carvedilol 25 mg tablet 25 mg PO Q12H Rx Instructions: must administer with a meal/food simvastatin 20 mg tablet 20 mg PO DAILY zinc sulfate 220 mg tablet 220 mg PO DAILY ascorbic acid (vitamin C) 1,000 mg tablet 1 g PO DAILY aspirin [Adult Aspirin Regimen] 81 mg tablet,delayed release (DR/EC) 81 mg PO DAILY cholecalciferol (vitamin D3) 25 mcg (1,000 unit) capsule 25 mcg PO DAILY potassium gluconate 600 mg (99 mg) tablet 600 mg PO DAILY vitamin E 100 unit capsule 100 unit PO DAILY sildenafil 100 mg tablet 100 mg PO DAILY PRN (Reason: sexual activity) Qty: 10 1RF Rx Instructions: administer 30 minutes to 4 hours before activity famotidine [Pepcid] 20 mg tablet 20 mg PO DAILY Qty: 20 0RF Follow-up/Referrals: Isaac,Shaan Clayton MD [Primary Care Provider, Unknown] Time of Disposition: 17:54
== END 2025-02-28 18:32 | disposition home or self-care (01) ==
PROVIDERS: Nurse Practitioner Family; Emergency Provider Family Medicine; PCP Family Medicine
DX: K52.9 Noninfective gastroenteritis and colitis, unspecified (principal); I10 Essential (primary) hypertension; I25.10 Atherosclerotic heart disease of native coronary artery without angina pectoris; E78.5 Hyperlipidemia, unspecified; K21.9 Gastro-esophageal reflux disease without esophagitis; Z86.73 Personal history of transient ischemic attack (TIA), and cerebral infarction without residual deficits; Z79.02 Long term (current) use of antithrombotics/antiplatelets; Z79.899 Other long term (current) drug therapy; Z79.82 Long term (current) use of aspirin; N40.0 Benign prostatic hyperplasia without lower urinary tract symptoms; R93.2 Abnormal findings on diagnostic imaging of liver and biliary tract; R93.5 Abnormal findings on diagnostic imaging of other abdominal regions, including retroperitoneum
CPT/HCPCS: 36415; 74177; 80053; 83690; 85025; 99284; Q9967